=== PATIENT | female | born 1985 | race Caucasian/White ===

== ENCOUNTER → 2023-09-13 11:53 | Outpatient (CLI) | payer OTHER, SELFPAY ==
[2023-09-13 13:33] LABS: HCG,Quantitative 70626 mIU/ml (0-5.42)
[2023-09-14 08:36] LABS: Progesterone 8.3 ng/mL (.)
== END ==
PROVIDERS: PCP Family Medicine; Visit Provider Obstetrics & Gynecology
DX: Z34.90 Encounter for supervision of normal pregnancy, unspecified, unspecified trimester (principal); Z3A.00 Weeks of gestation of pregnancy not specified
CPT/HCPCS: 36415; 84144; 84702

== ENCOUNTER → 2023-09-28 16:03 | Outpatient (CLI) | payer OTHER, SELFPAY ==
[2023-09-28 16:47] LABS: Basophils # 0.1 K/mm3 (0-0.2); Basophils % 0.4 % (0.1-2.0); Eosinophils # 0.3 K/mm3 (0.0-0.4); Hematocrit 42.6 % (37.0-47.0); Hemoglobin 14.7 g/dL (12.2-16.2); Lymphocytes # 3.5 K/mm3 (0.7-4.5); Lymphocytes % 26.9 % (10-50); Mean Corpuscular HGB Conc 34.5 g/dL (31.8-35.4); Mean Corpuscular Hemoglobin 30.3 pg (27.0-31.2); Mean Platelet Volume 7.9 fl (7.4-10.4); Monocytes # 0.6 K/mm3 (0.1-1.0); Monocytes % 4.2 % (1.7-9.3); Neutrophils # 8.7 K/mm3 (1.8-7.8); Neutrophils % 66.5 % (37.0-80.0); Platelet Count 331 K/mm3 (142-424); Red Blood Count 4.84 M/mm3 (4.20-5.40); Red Cell Distribution Width 13.4 % (11.5-17.5)
[2023-09-28 18:03] LABS: Chloride 102 mmol/L (98-107); Potassium 4.4 mmoL/L (3.5-5.1); Sodium 136 mmol/L (136-145)
[2023-09-28 18:06] LABS: Amphetamine/Metha Screen,Urine Negative ng/ml (<1000); Barbiturates Screen,Urine Negative ng/ml (<200); Benzodiazepines Screen,Urine Negative ng/ml (<200); Cannabinoid Screen,Urine Negative ng/ml (<50)
[2023-09-28 18:06] LABS: Alanine Aminotransferase 26 U/L (12-78); Albumin Level 4.4 g/dl (3.5-5.0); Albumin/Globulin Ratio 1.4 (1.1-1.8); Alkaline Phosphatase 77 U/L (38-126); Anion Gap 13.4 mEq/L (5-15); Aspartate Amino Transferase 30 U/L (14-36); Bilirubin,Total 0.3 mg/dl (0.2-1.3); Blood Urea Nitrogen 6 mg/dl (7-17); Calcium 9.1 mg/dl (8.4-10.2); Carbon Dioxide 25 mmol/L (22.0-30.0); Estimated Glomerular Filt Rate 139 ml/min (>60); GFR (African American) 168 ML/MIN (>60); Globulin 3.1 g/dL (1.3-3.2); Glucose 128 mg/dl (74-100); Total Protein,Serum 7.5 g/dl (6.3-8.2)
[2023-09-28 18:07] LABS: Cocaine Screen,Urine Negative ng/ml (<300)
[2023-09-28 18:08] LABS: Methadone Screen,Urine Negative ng/ml (<300); Opiate Screen,Urine Negative ng/ml (<300)
[2023-09-28 18:09] LABS: Phencyclidine Screen,Urine Negative ng/ml (<25)
[2023-09-30 12:13] LABS: HIV Screen 4th Generation wRfx Non Reactive (Non Reactive); Rapid Plasma Reagin Ab Titer Non Reactive titer (NonRea<1:1)
[2023-10-04 09:41] LABS: Hepatitis B Surface Antigen Negative; Hepatitis C Antibody Non Reactive
== END ==
PROVIDERS: PCP Family Medicine; Visit Provider Obstetrics & Gynecology
DX: Z34.91 Encounter for supervision of normal pregnancy, unspecified, first trimester (principal); Z3A.10 10 weeks gestation of pregnancy
CPT/HCPCS: 36415; 80053; 80305; 85025; 86593; 86703; 86762; 86850; 87086; 87340; 87380; G0432

== ENCOUNTER → 2023-09-30 09:47 | Outpatient (CLI) | payer OTHER, SELFPAY ==
[2023-09-30 11:38] LABS: Glucose,Fasting 114 mg/dl (74-100)
[2023-09-30 11:51] LABS: Glucose 1 Hour 122 mg/dL (74-100)
[2023-09-30 15:02] LABS: Creatinine,Urine Random 102 mg/dL (Not Estab.)
[2023-09-30 15:21] LABS: Collection Time,Urine 24 hours
[2023-09-30 15:22] LABS: Creatinine 24 Hour,Urine 1173 mg/24hr (630-2500); Total Protein 24 Hour,Urine 230 mg/24 hr (40-90); Total Volume,Urine 1150 mL (600-1600)
[2023-09-30 15:52] LABS: Creatinine Clearance Urine 136.5 mL/min (25-115); Patient Height,Urine 64 inches; Patient Weight,Urine 229 lbs
== END ==
PROVIDERS: PCP Family Medicine; Visit Provider Obstetrics & Gynecology
DX: Z34.91 Encounter for supervision of normal pregnancy, unspecified, first trimester (principal); Z3A.10 10 weeks gestation of pregnancy
CPT/HCPCS: 36415; 82575; 82951; 84155

== ENCOUNTER 2023-11-22 15:09 | Outpatient (CLI) | payer OTHER, SELFPAY | END 2023-11-22 23:59 | LOC: RT 15:09 | PROVIDERS: PCP Family Medicine; Visit Provider Internal Medicine | DX: O10.912 Unspecified pre-existing hypertension complicating pregnancy, second trimester (principal); Z3A.18 18 weeks gestation of pregnancy; R94.31 Abnormal electrocardiogram [ECG] [EKG]; I48.91 Unspecified atrial fibrillation; Z86.32 Personal history of gestational diabetes; Z87.59 Personal history of other complications of pregnancy, childbirth and the puerperium; E66.9 Obesity, unspecified; Z68.41 Body mass index [BMI] 40.0-44.9, adult | CPT/HCPCS: 93270 ==

== ENCOUNTER 2023-12-03 13:25 | Outpatient (CLI) | payer OTHER, SELFPAY ==
[2023-12-03 14:00] VITALS: BP 148/73; PULSE 84; RESP 18; TEMP 36.7; O2SAT 97; BMI 40.1
== END 2023-12-03 15:21 | disposition home or self-care (01) ==
LOC: OBOUT 13:28 → OB 13:28
PROVIDERS: PCP Family Medicine; Visit Provider Obstetrics & Gynecology
DX: O26.892 Other specified pregnancy related conditions, second trimester (principal); O20.9 Hemorrhage in early pregnancy, unspecified; Z3A.19 19 weeks gestation of pregnancy

== ENCOUNTER 2023-12-03 14:56 | Outpatient (CLI) | payer OTHER, SELFPAY ==
--- NOTE | 2023-12-03 14:57 | CA_ITS ---
APPROVED REPORT EXAM: Comprehensive 2D, Doppler, and color-flow Echocardiogram Travel Consultant: Shaina Rene RDCS Ht: 5 ft 4 in Wt: 234lbs BSA: 2.09 BP: 152/96 mmHg Indications: AF,ABN EKG,20 WKS , 2D Dimensions Left Atrium 3.87 cm F: 2.7 - 3.8 EF AP4 51.10 % LVOT 1.66 cm (M/F) 1.5-2.5 GL Strain -16.3 % M-Mode Dimensions RVDd 2.04 cm (0.9-2.6) LVDd 5.58 cm (3.5-5.7) Ao Diam 3.12 cm (2.0-3.7) LVDs 3.86 cm (3.5-5.7) IVSd 0.64 cm (0.6-1.1) PWd 0.75 cm (0.6-1.1) EF (Teich) 57.80% FS 30.80% EDV (Teich) 152.40 mL ESV (Teich) 64.30 mL LV Diastology E Decel Time 142 (160-240 msec) E/A Ratio 1.8 MED E' 13.4 (>= 7 cm/sec) E'/MED E' Ratio 6.57 (<= 14) LAT E' 11.6 (>= 10 cm/sec) E/LAT E' Ratio 7.59 (<= 14) Mitral Valve MV E Max Rigoberto. 88.0 (40-130 cm/s) MV A Velocity 49.0 (40-130 cm/s) E/A Ratio 1.79 MV Decel. Time 142 (160-240 ms) Left Ventricle The left ventricle is normal size. The left ventricular systolic function is normal. The left ventricular ejection fraction is within the normal range. There is normal left ventricular wall thickness. There is normal LV segmental wall motion. The left ventricular diastolic function is normal. LVEF is 50-55%. Right Ventricle The right ventricle is normal size. The right ventricular systolic function is normal. Atria The left atrium size is normal. The right atrium size is normal. The interatrial septum is not well-visualized. Aortic Valve The aortic valve opens well. There is no aortic valvular stenosis. Trace aortic regurgitation. Mitral Valve The mitral valve is normal in structure. No evidence of mitral valve stenosis. Mild mitral regurgitation. Tricuspid Valve The tricuspid valve leaflets are thin and pliable. Trace tricuspid regurgitation. RVSP is 15 mmHg + RA pressure. Pulmonic Valve The pulmonary valve is normal in structure. Trace pulmonic regurgitation. Great Vessels The aortic root is normal in size. The ascending aorta is normal in size. The IVC is not well-visualized. Pericardium There is no pericardial effusion. Conclusion Normal biventricular systolic function. Mild MR. Electronically signed by : Hortencia Noland MD 12/06/2023 12:56:50
== END 2023-12-03 23:59 ==
LOC: RT 14:57
PROVIDERS: PCP Family Medicine; Visit Provider Internal Medicine
DX: I48.91 Unspecified atrial fibrillation; E66.9 Obesity, unspecified; R94.31 Abnormal electrocardiogram [ECG] [EKG]; Z3A.20 20 weeks gestation of pregnancy; Z86.32 Personal history of gestational diabetes; Z87.59 Personal history of other complications of pregnancy, childbirth and the puerperium; Z68.39 Body mass index [BMI] 39.0-39.9, adult; O10.912 Unspecified pre-existing hypertension complicating pregnancy, second trimester
CPT/HCPCS: 93306

== ENCOUNTER 2023-12-06 12:51 | Outpatient (CLI) | payer OTHER, SELFPAY ==
--- NOTE | 2023-12-06 12:58 | US_ITS ---
PROCEDURE: US OB /MATERNAL DETAIL CLINICAL INDICATION: 20 WEEK ANATOMY SCAN COMPARISON: No exams were available for comparison FINDINGS: Transabdominal sonographic images of the pelvis were obtained. From her established due date she is 20 weeks 2 days. Single viable intrauterine gestation. Breech position. Placenta: Posteriorplacenta grade 1. There is an average amount of fluid. The cervix appears satisfactory. Closed and measuring 3.1 cm in length. Complete survey performed and was unremarkable on the submitted images as in PACS. No discrete anomalies identified on survey imaging by technologist. Active fetus. Three-vessel cord with satisfactory umbilical cord insertion. 4- chamber heart noted. Situs, aortic arch, LVOT, RVOT appear normal. Survey of brain & ventricles Unremarkable. Cerebellum, thalamus, choroid plexus, cisterna magna appear normal. Face and neck survey unremarkable. Profile, nasion, lips and nose appeared normal. Diaphragm and chest views unremarkable. Abdomen: Both kidneys noted and unremarkable. Stomach and bladder noted and satisfactory. Spine: Survey of the spine satisfactory with no anomalies identified nor imaged. Cervical, thoracic, lower spine appear normal. Both arms and legs noted. Amniotic Fluid: Adequate. Measurements: Average ultrasound age 19weeks 4days. Estimated due date by ultrasound age 0704/27/2024. Estimated weight 296g BPD = 19weeks 2days HC = 19weeks 4days AC = 19weeks 1day FL = 20weeks 0 days Growth Percentile= 11 Heart Rate = 152bpm Cerebellum = 19weeks 1day Humerus = 20weeks 1day HC/AC is 1.23 FL/BPD is 0.73 FL/AC is 0.23 IMPRESSION: 1. Viable fetus in the breech presentation with a posterior placenta grade 1. 2. The fluid is within normal limits. 3. Anatomical scan appears normal. The ultrasound was difficult due to position and maternal body habitus. 4. biometry is consistent with the dates. Dictated by: Felix Enriquez MD 12/06/2023 15:06 Felix Enriquez MD in [facility] 12/06/2023 15:06
== END 2023-12-06 23:59 ==
LOC: RAD 12:51
PROVIDERS: PCP Family Medicine; Visit Provider Obstetrics & Gynecology
DX: Z34.92 Encounter for supervision of normal pregnancy, unspecified, second trimester (principal); Z3A.20 20 weeks gestation of pregnancy
CPT/HCPCS: 76811

== ENCOUNTER 2024-02-02 11:36 | Outpatient (CLI) | payer OTHER, SELFPAY ==
[2024-02-02 12:40] LABS: Glucose,Fasting 108 mg/dl (74-100)
--- NOTE | 2024-02-02 13:13 | US_ITS ---
PROCEDURE: US OB BIOPHYSICAL PROFILE CLINICAL INDICATION: growth and Melodie/ SD ratio COMPARISON: US US OB /MATERNAL DETAIL from 12/06/2023 FINDINGS: Transabdominal sonographic images of the uterus were obtained. From her established due date she is 28weeks 4days. The following parameters are obtained: Viable Fetus in the cephalic presentation with a posterior placenta grade 1. Average ultrasound age is 28weeks 3days Estimated weight 1,160g Cervix measures 2.68 cm Measurements: heart Rate = 135bpm BPD = 28weeks 5days, 41 percentile HC = 28weeks 6days, 25 percentile AC = 27weeks 5days, 18 percentile FL = 28weeks 2days, 24 percentile HC/AC is 1.14 FL/BPD is 0.74 FL/AC is 0.23 19 percentile Amniotic fluid index: 12.74cm, MVP 4.11 cm. Qualitative AFV:2 Breathing movements: 2 Gross Body Movements: 2 Tone: 2 Biophysical profile score: 8 Doppler evaluation of the umbilical artery: SD ratio: 2.67-3.04 Resistive index: 0.63 No obvious anomalies evident.Kidneys, profile, nasion, diaphragm, bladder, stomach, four-chamber heart, three-vessel cord appear normal. IMPRESSION: 1. Viable fetus in the cephalic presentation with a posterior placenta grade 1. 2. The fluid is within normal limits with an amniotic fluid index of 12.74 cm, MVP 4.11 cm. 3. Biophysical profile is 8/8 with good breathing movement and movement seen. 4. Doppler evaluation of the umbilical artery is normal with the SD ratio 2.67-3.04. 5. There has been good interval growth with the fetus currently 19th percentile. Dictated by: Felix Enriquez MD 02/02/2024 16:53 Felix Enriquez MD in [facility] 02/02/2024 16:53
[2024-02-02 13:26] LABS: Glucose 1 Hour 135 mg/dL (74-100)
[2024-02-02 14:30] LABS: Basophils # 0.1 K/mm3 (0-0.2); Basophils % 0.4 % (0.1-2.0); Eosinophils # 0.3 K/mm3 (0.0-0.4); Eosinophils % 1.9 % (0.1-12.0); Hematocrit 39.8 % (37.0-47.0); Hemoglobin 12.6 g/dL (12.2-16.2); Lymphocytes % 18.3 % (10-50); Mean Corpuscular HGB Conc 31.7 g/dL (31.8-35.4); Mean Corpuscular Hemoglobin 29.8 pg (27.0-31.2); Mean Platelet Volume 8.4 fl (7.4-10.4); Monocytes # 0.6 K/mm3 (0.1-1.0); Monocytes % 3.8 % (1.7-9.3); Neutrophils # 12.4 K/mm3 (1.8-7.8); Neutrophils % 75.6 % (37.0-80.0); Platelet Count 341 K/mm3 (142-424); Red Blood Count 4.24 M/mm3 (4.20-5.40); Red Cell Distribution Width 13.8 % (11.5-17.5); White Blood Count 16.4 K/mm3 (4.8-10.8)
[2024-02-02 14:33] LABS: MANUAL DIFFERENTIAL MANUAL DIFFERENTIAL (MANUAL DIFF)
[2024-02-02 15:08] LABS: Lymphocytes % 20 % (10-50); Monocytes % 3 % (2-9); Neutrophils % 77 % (42-76); Platelet Estimate Normal; RBC Morphology Normal; Total Cells Counted 100
== END 2024-02-02 23:59 | disposition home or self-care (01) ==
LOC: RAD 11:36
PROVIDERS: PCP Family Medicine; Visit Provider Obstetrics & Gynecology
DX: O09.523 Supervision of elderly multigravida, third trimester (principal); O28.8 Other abnormal findings on antenatal screening of mother; Z86.32 Personal history of gestational diabetes; O09.293 Supervision of pregnancy with other poor reproductive or obstetric history, third trimester; O10.913 Unspecified pre-existing hypertension complicating pregnancy, third trimester; Z87.59 Personal history of other complications of pregnancy, childbirth and the puerperium; I48.20 Chronic atrial fibrillation, unspecified; Z3A.28 28 weeks gestation of pregnancy
CPT/HCPCS: 36415; 76816; 76819; 76820; 82951; 85007; 85025

== ENCOUNTER 2024-03-01 11:54 | Outpatient (CLI) | payer OTHER, SELFPAY ==
[2024-03-01 12:28] LABS: Basophils # 0.1 K/mm3 (0-0.2); Basophils % 0.4 % (0.1-2.0); Eosinophils # 0.2 K/mm3 (0.0-0.4); Hematocrit 38.2 % (37.0-47.0); Hemoglobin 12.4 g/dL (12.2-16.2); Lymphocytes # 2.7 K/mm3 (0.7-4.5); Lymphocytes % 17.6 % (10-50); Mean Corpuscular HGB Conc 32.5 g/dL (31.8-35.4); Mean Corpuscular Volume 92.6 fl (81-99); Mean Platelet Volume 8.6 fl (7.4-10.4); Monocytes # 0.7 K/mm3 (0.1-1.0); Monocytes % 4.4 % (1.7-9.3); Neutrophils # 11.6 K/mm3 (1.8-7.8); Neutrophils % 76.6 % (37.0-80.0); Platelet Count 362 K/mm3 (142-424); Red Blood Count 4.13 M/mm3 (4.20-5.40); White Blood Count 15.1 K/mm3 (4.8-10.8)
[2024-03-01] MEDS: BETAMETHASONE ACET/PHOS 6MG/ML 5ML MDV 12 MG IM (12:29)
[2024-03-01 12:30] LABS: MANUAL DIFFERENTIAL MANUAL DIFFERENTIAL (MANUAL DIFF)
[2024-03-01 12:52] LABS: Alanine Aminotransferase 19 U/L (12-78); Albumin Level 3.6 g/dl (3.5-5.0); Albumin/Globulin Ratio 1.2 (1.1-1.8); Alkaline Phosphatase 119 U/L (38-126); Anion Gap 12.1 mEq/L (5-15); Aspartate Amino Transferase 26 U/L (14-36); Bilirubin,Total 0.3 mg/dl (0.2-1.3); Blood Urea Nitrogen 4 mg/dl (7-17); Calcium 9.6 mg/dl (8.4-10.2); Carbon Dioxide 25 mmol/L (22.0-30.0); Chloride 103 mmol/L (98-107); Estimated Glomerular Filt Rate 138 ml/min (>60); GFR (African American) 167 ML/MIN (>60); Globulin 2.9 g/dL (1.3-3.2); Glucose 101 mg/dl (74-100); Potassium 4.1 mmoL/L (3.5-5.1); Sodium 136 mmol/L (136-145); Total Protein,Serum 6.5 g/dl (6.3-8.2); Uric Acid 3.3 mg/dl (2.5-6.2)
[2024-03-01 14:17] LABS: Eosinophils % 2 % (0-3); Lymphocytes % 23 % (10-50); Monocytes % 9 % (2-9); Neutrophils % 60 % (42-76); Total Cells Counted 100
[2024-03-01 14:19] LABS: Platelet Estimate Normal; RBC Morphology Normal
== END 2024-03-01 23:59 | disposition home or self-care (01) ==
LOC: LAB 11:56
PROVIDERS: PCP Family Medicine; Visit Provider Obstetrics & Gynecology
DX: O10.913 Unspecified pre-existing hypertension complicating pregnancy, third trimester (principal); Z3A.32 32 weeks gestation of pregnancy
CPT/HCPCS: 36415; 80053; 84550; 85007; 85025

== ENCOUNTER 2024-03-02 12:30 | Outpatient (CLI) | payer OTHER, SELFPAY ==
[2024-03-02] MEDS: BETAMETHASONE ACET/PHOS 6MG/ML 5ML MDV 12 MG IM (12:54)
[2024-03-02 12:55] VITALS: BP 129/71; PULSE 95; RESP 18; TEMP 37; O2SAT 97; BMI 41.3
[2024-03-02 16:45] LABS: Total Protein 24 Hour,Urine 240 mg/24 hr (40-90); Total Volume,Urine 1200 mL (600-1600)
== END 2024-03-02 13:00 | disposition home or self-care (01) ==
LOC: LAB.DROPOF 12:31 → OBOUT 12:32 → OB 12:34
PROVIDERS: PCP Family Medicine; Visit Provider Obstetrics & Gynecology
DX: O10.913 Unspecified pre-existing hypertension complicating pregnancy, third trimester (principal); Z3A.32 32 weeks gestation of pregnancy
CPT/HCPCS: 84155

== ENCOUNTER 2024-03-08 10:03 | Outpatient (CLI) | payer OTHER, SELFPAY ==
--- NOTE | 2024-03-08 10:08 | US_ITS ---
PROCEDURE: US OB BIOPHYSICAL PROFILE CLINICAL INDICATION: Chronic Hypertention affecting COMPARISON: US US OB /MATERNAL DETAIL from 12/06/2023 US US OB BIOPHYSICAL PROFILE from 02/02/2024 FINDINGS: Transabdominal sonographic images of the uterus were obtained. From her established due date she is 33weeks 4days. The following parameters are obtained: Viable Fetus in the cephalic presentation with a posterior placenta grade 2. Average ultrasound age is 33weeks 5days Estimated weight 2,132g Measurements: heart Rate = 149bpm BPD = 34weeks 3days, 70 percentile HC = 34weeks 3days, 31 percentile AC = 33weeks 0 days, 31 percentile FL = 33weeks 0 days, 23 percentile HC/AC is 1.07 FL/BPD is 0.75 FL/AC is 0.22 growth =30 percentile Amniotic fluid index: 8.97cm, MVP 4.07 cm. Qualitative AFV:2 Breathing movements: 2 Gross Body Movements: 2 Tone: 2 Biophysical profile score: 8 No obvious anomalies evident.Stomach, kidneys, bladder, four-chamber heart, three-vessel cord appear normal. IMPRESSION: 1. Viable fetus in the cephalic presentation with a posterior placenta grade 2. 2. The fluid is within normal limits with an amniotic fluid index of 8.97 cm, MVP 4.07 cm. 3. Biophysical profile is 8/8 with good breathing movement and movement seen. 4. There has been good interval growth of the fetus currently 30th percentile. 5. Limited anatomical scan appears normal. Dictated by: Felix Enriquez MD 03/08/2024 13:44 Felix Enriquez MD in [facility] 03/08/2024 13:44
== END 2024-03-08 23:59 | disposition home or self-care (01) ==
LOC: RAD 10:03
PROVIDERS: PCP Family Medicine; Visit Provider Obstetrics & Gynecology
DX: O26.893 Other specified pregnancy related conditions, third trimester (principal); O10.919 Unspecified pre-existing hypertension complicating pregnancy, unspecified trimester; Z3A.33 33 weeks gestation of pregnancy; I48.20 Chronic atrial fibrillation, unspecified; R94.31 Abnormal electrocardiogram [ECG] [EKG]
CPT/HCPCS: 76816; 76819

== ENCOUNTER 2024-03-15 11:14 | Outpatient (CLI) | payer OTHER, SELFPAY ==
[2024-03-15 11:50] VITALS: BMI 40.8
[2024-03-15 11:58] VITALS: BP 142/87; PULSE 94; RESP 18; TEMP 36.6; O2SAT 97; BMI 40.8
[2024-03-15 12:10] LABS: Basophils # 0.1 K/mm3 (0-0.2); Basophils % 0.7 % (0.1-2.0); Eosinophils # 0.2 K/mm3 (0.0-0.4); Eosinophils % 1.2 % (0.1-12.0); Hematocrit 39.5 % (37.0-47.0); Hemoglobin 12.7 g/dL (12.2-16.2); Lymphocytes # 2.9 K/mm3 (0.7-4.5); Lymphocytes % 16.6 % (10-50); Mean Corpuscular HGB Conc 32.1 g/dL (31.8-35.4); Mean Corpuscular Hemoglobin 29.9 pg (27.0-31.2); Mean Corpuscular Volume 93.3 fl (81-99); Mean Platelet Volume 8.1 fl (7.4-10.4); Monocytes # 0.8 K/mm3 (0.1-1.0); Monocytes % 4.9 % (1.7-9.3); Neutrophils # 13.2 K/mm3 (1.8-7.8); Neutrophils % 76.7 % (37.0-80.0); Platelet Count 317 K/mm3 (142-424); Red Blood Count 4.24 M/mm3 (4.20-5.40); Red Cell Distribution Width 14.1 % (11.5-17.5); White Blood Count 17.2 K/mm3 (4.8-10.8)
[2024-03-15 12:16] LABS: Chloride 104 mmol/L (98-107); MANUAL DIFFERENTIAL MANUAL DIFFERENTIAL (MANUAL DIFF); Potassium 4.2 mmoL/L (3.5-5.1); Sodium 133 mmol/L (136-145)
[2024-03-15 12:18] LABS: Alanine Aminotransferase 19 U/L (12-78); Aspartate Amino Transferase 24 U/L (14-36); Blood Urea Nitrogen 5 mg/dl (7-17); Creatinine Clearance Estimated 325 mL/min (50-200); Estimated Glomerular Filt Rate 179 ml/min (>60); GFR (African American) 216 ML/MIN (>60)
[2024-03-15 12:19] LABS: Albumin Level 3.7 g/dl (3.5-5.0); Albumin/Globulin Ratio 1.1 (1.1-1.8); Alkaline Phosphatase 112 U/L (38-126); Anion Gap 10.2 mEq/L (5-15); Bilirubin,Total 0.3 mg/dl (0.2-1.3); Calcium 9.9 mg/dl (8.4-10.2); Carbon Dioxide 23 mmol/L (22.0-30.0); Globulin 3.4 g/dL (1.3-3.2); Glucose 102 mg/dl (74-100); Total Protein,Serum 7.1 g/dl (6.3-8.2)
[2024-03-15 12:33] LABS: Uric Acid 3.2 mg/dl (2.5-6.2)
[2024-03-15 14:12] LABS: Eosinophils % 1 % (0-3); Lymphocytes % 19 % (10-50); Monocytes % 3 % (2-9); Neutrophils % 77 % (42-76); Platelet Estimate Normal; RBC Morphology Normal; Total Cells Counted 100
== END 2024-03-15 13:05 | disposition home or self-care (01) ==
LOC: OBOUT 11:16 → OB 11:17
PROVIDERS: PCP Family Medicine; Visit Provider Obstetrics & Gynecology
DX: O26.893 Other specified pregnancy related conditions, third trimester (principal); Z3A.34 34 weeks gestation of pregnancy
CPT/HCPCS: 36415; 80053; 84550; 85007; 85025; G0463

== ENCOUNTER 2024-03-22 10:06 | Outpatient (CLI) | payer OTHER, SELFPAY ==
--- NOTE | 2024-03-22 10:07 | US_ITS ---
PROCEDURE: US OB BIOPHYSICAL PROFILE CLINICAL INDICATION: Chronic Hypertension COMPARISON: US US OB /MATERNAL DETAIL from 12/06/2023 US US OB BIOPHYSICAL PROFILE from 03/08/2024 FINDINGS: Transabdominal sonographic images of the uterus were obtained. From her established due date she is 35weeks 4days. The following parameters are obtained: Viable Fetus in the cephalic presentation with a posterior placenta grade 2. Cervix measures 4.1 cm transvaginally. Measurements: heart Rate = 143bpm Amniotic fluid index: 11.1cm, MVP 4.16 cm. Qualitative AFV:2 Breathing movements: 2 Gross Body Movements: 2 Tone: 2 Biophysical profile score: 8 No obvious anomalies evident.Kidneys, stomach, bladder, four-chamber heart, three-vessel cord appear normal. IMPRESSION: 1. Viable fetus in the cephalic presentation with a posterior placenta grade 2. 2. The fluid is within normal limits with an amniotic fluid index of 11.1 cm, MVP 4.16 cm. 3. Biophysical profile is 8/8 with good breathing movement and movement seen. 4. Limited anatomical scan appears normal. Dictated by: Felix Enriquez MD 03/22/2024 14:13 Felix Enriquez MD in [facility] 03/22/2024 14:13
== END 2024-03-22 23:59 | disposition home or self-care (01) ==
LOC: RAD 10:07
PROVIDERS: PCP Family Medicine; Visit Provider Obstetrics & Gynecology
DX: O10.913 Unspecified pre-existing hypertension complicating pregnancy, third trimester (principal); Z3A.35 35 weeks gestation of pregnancy; R94.31 Abnormal electrocardiogram [ECG] [EKG]
CPT/HCPCS: 76819

== ENCOUNTER 2024-03-29 11:07 | Outpatient (CLI) | payer OTHER, SELFPAY ==
[2024-03-29 11:42] VITALS: BP 144/87; PULSE 96; RESP 19; TEMP 36.6; O2SAT 96; BMI 41.5
--- NOTE | 2024-03-29 11:53 | US_ITS ---
PROCEDURE: US OB BIOPHYSICAL PROFILE CLINICAL INDICATION: Non-reactive NST COMPARISON: US US OB /MATERNAL DETAIL from 12/06/2023 US US OB BIOPHYSICAL PROFILE from 03/22/2024 FINDINGS: Transabdominal sonographic images of the uterus were obtained. From her established due date she is 36weeks 4days. The following parameters are obtained: Viable Fetus in the cephalic presentation with a posterior placenta grade 2. Cervix measures 2.96 cm. Measurements: heart Rate = 135bpm Amniotic fluid index: 12.91cm, MVP 5.37 cm. Qualitative AFV:2 Breathing movements: 2 Gross Body Movements: 2 Tone: 2 Biophysical profile score: 8 No obvious anomalies evident.Kidneys, four-chamber heart, three-vessel cord appear normal. IMPRESSION: 1. Viable fetus in the cephalic presentation with a posterior placenta grade 2. 2. The fluid is within normal limits with an amniotic fluid index of 12.91 cm, MVP 5.37 cm. 3. Biophysical profile is 8/8 with good breathing movement and movement seen. 4. Nonstress test in labor and delivery eventually became reactive with good beat to beat variability and accelerations seen. 5. Limited anatomical scan appears normal. Dictated by: Felix Enriquez MD 03/29/2024 15:18 Felix Enriquez MD in [facility] 03/29/2024 15:18
[2024-03-29] MEDS: DEXTROSE 5%-LACTATED RINGERS 1,000 ML 999 ML IV (13:09)
== END 2024-03-29 14:17 | disposition home or self-care (01) ==
LOC: OBOUT 11:09 → OB 11:10
PROVIDERS: PCP Family Medicine; Visit Provider Obstetrics & Gynecology
DX: O10.913 Unspecified pre-existing hypertension complicating pregnancy, third trimester (principal)
CPT/HCPCS: 76819; G0463

== ENCOUNTER 2024-03-29 17:06 | Outpatient (CLI) | payer OTHER, SELFPAY | END 2024-03-29 23:59 | disposition home or self-care (01) | LOC: LAB.DROPOF 17:06 | PROVIDERS: PCP Obstetrics & Gynecology; Visit Provider Obstetrics & Gynecology | DX: O26.893 Other specified pregnancy related conditions, third trimester (principal); Z3A.36 36 weeks gestation of pregnancy | CPT/HCPCS: 86403 ==

== ENCOUNTER 2024-04-05 10:08 | Outpatient (CLI) | payer OTHER, SELFPAY ==
--- NOTE | 2024-04-05 10:09 | US_ITS ---
PROCEDURE: US OB BIOPHYSICAL PROFILE CLINICAL INDICATION: Chronic Hypertension in COMPARISON: US US OB /MATERNAL DETAIL from 12/06/2023 US US OB BIOPHYSICAL PROFILE from 03/29/2024 FINDINGS: Transabdominal and transvaginal sonographic images of the uterus were obtained. From her established due date she is 37weeks 4days. The following parameters are obtained: Viable Fetus in the cephalic presentation with a posterior placenta grade 2. Average ultrasound age is 37weeks 1day Estimated weight 3,108g, 6 lb 14 oz.-46th percentile Cervix measures 2.37-2.89 cm. Measured transvaginally. Measurements: heart Rate = 139bpm BPD = 37weeks 0 days, 51 percentile HC = 37weeks 1day, 17 percent AC = 37weeks 1day, 54 percent FL = 37weeks 1day, 37 percentile HC/AC is 0.98 FL/BPD is 0.8 FL/AC is 0.22 46 percentile Amniotic fluid index: 11.14cm, MVP 3.33 cm. Qualitative AFV:2 Breathing movements: 2 Gross Body Movements: 2 Tone: 2 Biophysical profile score: 8 No obvious anomalies evident.Kidneys, stomach, four-chamber heart, three-vessel cord appear normal. IMPRESSION: 1. Viable fetus in the cephalic presentation with a posterior placenta grade 2. 2. The fluid is within normal limits with an amniotic fluid index of 11.14 cm, MVP 3.33 cm. 3. Biophysical profile is 8/8 with good breathing movement and movement seen. 4. There has been good interval growth with the fetus currently 46 percentile. 5. Limited anatomical scan appears normal. Dictated by: Felix Enriquez MD 04/05/2024 13:25 Felix Enriquez MD in [facility] 04/05/2024 13:25
== END 2024-04-05 23:59 | disposition home or self-care (01) ==
LOC: RAD 10:09
PROVIDERS: PCP Family Medicine; Visit Provider Obstetrics & Gynecology
DX: O10.919 Unspecified pre-existing hypertension complicating pregnancy, unspecified trimester (principal); Z3A.37 37 weeks gestation of pregnancy; R94.31 Abnormal electrocardiogram [ECG] [EKG]
CPT/HCPCS: 76816; 76819

== ENCOUNTER 2024-04-05 14:24 | Outpatient (CLI) | payer OTHER, SELFPAY | END 2024-04-05 23:59 | disposition home or self-care (01) | LOC: LAB 14:25 | PROVIDERS: PCP Family Medicine; Visit Provider Obstetrics & Gynecology | DX: Z02.9 Encounter for administrative examinations, unspecified (principal) ==

== ENCOUNTER 2024-04-07 10:45 | Outpatient (CLI) | payer OTHER, SELFPAY ==
[2024-04-07 11:11] LABS: Basophils # 0.1 K/mm3 (0-0.2); Basophils % 0.8 % (0.1-2.0); Eosinophils # 0.1 K/mm3 (0.0-0.4); Eosinophils % 0.8 % (0.1-12.0); Hematocrit 40.4 % (37.0-47.0); Hemoglobin 13.1 g/dL (12.2-16.2); Lymphocytes # 3.1 K/mm3 (0.7-4.5); Lymphocytes % 19.5 % (10-50); Mean Corpuscular HGB Conc 32.4 g/dL (31.8-35.4); Mean Corpuscular Hemoglobin 29.9 pg (27.0-31.2); Mean Corpuscular Volume 92.2 fl (81-99); Mean Platelet Volume 8.4 fl (7.4-10.4); Monocytes # 0.7 K/mm3 (0.1-1.0); Monocytes % 4.2 % (1.7-9.3); Neutrophils # 11.7 K/mm3 (1.8-7.8); Neutrophils % 74.7 % (37.0-80.0); Platelet Count 342 K/mm3 (142-424); Red Blood Count 4.38 M/mm3 (4.20-5.40); Red Cell Distribution Width 13.8 % (11.5-17.5); White Blood Count 15.7 K/mm3 (4.8-10.8)
[2024-04-07 11:15] LABS: MANUAL DIFFERENTIAL MANUAL DIFFERENTIAL (MANUAL DIFF)
[2024-04-07 11:48] LABS: Alanine Aminotransferase 20 U/L (12-78); Albumin Level 3.6 g/dl (3.5-5.0); Albumin/Globulin Ratio 1.2 (1.1-1.8); Alkaline Phosphatase 143 U/L (38-126); Anion Gap 15.3 mEq/L (5-15); Aspartate Amino Transferase 25 U/L (14-36); Bilirubin,Total 0.4 mg/dl (0.2-1.3); Blood Urea Nitrogen 6 mg/dl (7-17); Calcium 9.6 mg/dl (8.4-10.2); Carbon Dioxide 23 mmol/L (22.0-30.0); Chloride 101 mmol/L (98-107); Estimated Glomerular Filt Rate 138 ml/min (>60); GFR (African American) 167 ML/MIN (>60); Globulin 3.1 g/dL (1.3-3.2); Glucose 125 mg/dl (74-100); Lactate Dehydrogenase 180 U/L (313-618); Potassium 4.3 mmoL/L (3.5-5.1); Sodium 135 mmol/L (136-145); Total Protein,Serum 6.7 g/dl (6.3-8.2)
[2024-04-07 11:53] LABS: Lymphocytes % 17 % (10-50); Monocytes % 6 % (2-9); Neutrophils % 77 % (42-76); Platelet Estimate Normal; RBC Morphology Normal; Total Cells Counted 100
[2024-04-07 13:22] LABS: Collection Time,Urine 24 hours; Total Volume,Urine 2850 mL (600-1600)
[2024-04-07 13:27] LABS: Patient Weight,Urine 247 lbs
[2024-04-07 13:28] LABS: Patient Height,Urine 64 inches
[2024-04-07 13:44] LABS: Total Protein 24 Hour,Urine 485 mg/24 hr (40-90)
[2024-04-07 13:45] LABS: Creatinine 24 Hour,Urine 1625 mg/24hr (630-2500)
[2024-04-07 13:46] LABS: Creatinine,Urine Random 57 mg/dL (Not Estab.)
== END 2024-04-07 23:59 | disposition home or self-care (01) ==
LOC: LAB 10:46
PROVIDERS: PCP Family Medicine; Visit Provider Obstetrics & Gynecology
DX: Z34.93 Encounter for supervision of normal pregnancy, unspecified, third trimester (principal); Z3A.33 33 weeks gestation of pregnancy; Z86.32 Personal history of gestational diabetes
CPT/HCPCS: 36415; 80053; 82575; 83615; 84155; 84550; 85007; 85025; 85027

== ENCOUNTER 2024-04-12 11:45 | Inpatient (IN) | payer OTHER, SELFPAY ==
[2024-04-12 12:17] VITALS: BP 164/95; PULSE 91; RESP 18; TEMP 36.6; O2SAT 97; BMI 42.5
--- NOTE | 2024-04-12 12:23 | EXP.HP ---
History of Present Illness *Admission Date: 04/12/24 *Reason for visit:: induction *History of present illness: Tahira is a 38yo who presented to the office today where she was diagnosed with chronic hypertension with superimposed preeclampsia. She also had a nonreactive NST and was sent to L&D for induction. has been complicated by a history of preeclampsia, depression anxiety, anxiety, and obesity. Her BP has been managed with Labetalol 400mg BID and Nifedipine 60mg PO daily. She has taken ASA daily. On presentation patient endorsed good movement and denies any leakage of fluid or vaginal bleeding. O+, antibody negative, rubella immune, hepatitis B negative, hepatitis C negative, RPR negative, HIV negative 1 hour GTT: 135 GBS negative PFSH PFSH Disclaimer: The information contained in this section may have been updated after the patient was seen, as this information can be updated by other users. Medical History History of gestational diabetes Chronic hypertension affecting Abnormal electrocardiogram [ECG] [EKG] Preeclampsia Anxiety Depression Vaginal delivery A-fib Surgical History Hx of cholecystectomy Family History Grandfather Cancer Father Diabetes Hypertension Family/Other Alcoholism Social History Smoking Status: Never smoker second hand exposure: No alcohol intake: never substance use type: denies use current occupational status: unemployed Travel in the last 8 weeks: None adopted: No caregiver/support person: No foster care: No household members: spouse and children housing: house lives independently: Yes marital status: number of children: 1 service: No care home: No current occupational exposures/hazards: No pets and animals: Yes leisure activities: exercise, music, reading and other Hx Recent Travel: Yes sexually active: Yes well-balanced diet: about half the time caffeine: Yes high-fat food intake: 2 times daily daily servings fruits/ve-4 daily servings of milk/calcium: 2-4 eating out: 1-3 times/week reads food labels: seldom or never during the past year weight has: decreased > 10 lbs physical activity: walking and other frequency: 3-4 times per week duration: 15-30 minutes/day roxy/orthodoxy: None special roxy needs: No agree to transfusion: Yes helmet use: Yes drive intox or ride w/ intox residential recycle driver: No Review of Systems Review of Systems Review of systems (narrative): Review of Systems Constitutional: Denies fever, chills, and sweats Eyes: Denies vision change/ pain Respiratory: Denies cough and shortness of breath Cardiovascular: Denies chest pain and lightheadedness Gastrointestinal: Denies abdominal pain. Denies nausea, vomiting. Genitourinary: Denies dysuria and incontinence Musculoskeletal: Denies shoulder pain and back pain Neurological: Denies change in speech or headaches Meds Home Medications and Allergies Home Medications Medication Instructions Recorded Confirmed Type omega 0-dvv-adb-fish oil 1,000 mg 1 cap PO DAILY 07/05/23 04/12/24 History (120 mg-180 mg) capsule (Fish Oil) vitamins with calcium 1 tab PO DAILY 07/05/23 04/12/24 History no.72-iron 29 mg-folic acid 1 mg tablet sertraline 50 mg tablet 50 mg PO DAILY #90 tabs 10/11/23 04/12/24 Rx aspirin 81 mg tablet,delayed 81 mg PO DAILY 11/19/23 04/12/24 History release (Adult Aspirin Regimen) nifedipine 60 mg tablet,extended 60 mg PO DAILY #30 tabs 04/05/24 04/12/24 Rx release labetalol 200 mg tablet 400 mg (2 x 200 mg) PO BID #120 04/11/24 04/12/24 Rx tabs New Prescriptions to Start Prescriptions: Allergies Allergy/AdvReac Type Severity Reaction Status Date / Time sulfamethoxazole Allergy Intermediate Hives Verified 03/29/24 09:42 [From Bactrim] trimethoprim [From Bactrim] Allergy Intermediate Hives Verified 03/29/24 09:42 Exam Data for Last 24 hours Narrative: General: patient is alert oriented in no acute distress and responds appropriately to questions. HEENT: NCAT, EOMI, moist mucous membranes, neck supple with full ROM Cardiovascular: RRR +S1/S2, no murmurs or rubs Pulmonary: Clear to auscultation bilaterally, nonlabored breathing, symmetric chest rise Abdominal: Gravid abdomen appropriate for gestation. No guarding, rebound, or tenderness noted. SVE: 3cm Extremities: trace edema, no tenderness or cyanosis noted Skin: Normal turgor, intact, warm. Negative for erythema, pallor, petechia, or lesions Neurologic: Negative for sensory or motor deficit Psychiatric: Normal affect, normal thought process, good judgment and insight, no depression or anxious mood appreciated. *Routine HEENT Exam Head: Present normocephalic and atraumatic Eye: Present EOMI, PERRL and normal accommodation; Absent conjunctival icterus, scleral injection, nystagmus or exophthalmos ENT: Present mucous membranes moist *Routine Respiratory Exam Respiratory: Present CTA bilaterally, normal respiratory effort, able to speak in complete sentences and symmetric chest movement; Absent accessory muscle use, decreased breath sounds, rales, respiratory distress, wheezes, distant breath sounds or diminished air movement *Routine Cardiovascular Exam Cardiovascular: Present RRR, Normal S1 and Normal S2; Absent murmur or gallop *Routine Abdominal Exam Abdominal: Present soft and normoactive bowel sounds; Absent tenderness, distended, rebound or guarding *Routine Rectal Exam Rectal:: deferred *Routine Genitalia Exam Genitalia:: normal female Assessment and Plan *Assessment and plan (1) Non-reactive NST (non-stress test): Status: Acute Category: Medical Code(s): O28.8 - Other abnormal findings on screening of mother (2) Chronic hypertension with superimposed preeclampsia: Status: Acute Category: Medical Code(s): O11.9 - Pre-existing hypertension with pre-eclampsia, unspecified trimester (3) History of gestational diabetes: Status: Acute Category: Medical Code(s): Z86.32 - Personal history of gestational diabetes (4) Chronic hypertension affecting : Status: Acute Category: Medical Code(s): O10.919 - Unspecified pre-existing hypertension complicating , unspecified trimester (5) Obesity (BMI 30-39.9): Status: Acute Category: Medical Code(s): E66.9 - Obesity, unspecified (6) History of pre-eclampsia: Status: Acute Category: Medical Code(s): Z87.59 - Personal history of other complications of , childbirth and the puerperium (7) : Status: Acute Qualifiers: Weeks of gestation: 33 weeks Qualified Code(s): Z3A.33 - 33 weeks gestation of Category: Medical Code(s): Z34.90 - Encounter for supervision of normal , unspecified, unspecified trimester (8) Depression: Status: Acute Category: Medical Code(s): F32.A - Depression, unspecified (9) Anxiety: Status: Acute Category: Medical Code(s): F41.9 - Anxiety disorder, unspecified (10) A-fib: Status: Acute Qualifiers: Atrial fibrillation type: unspecified chronic Qualified Code(s): I48.20 - Chronic atrial fibrillation, unspecified Category: Medical Code(s): I48.91 - Unspecified atrial fibrillation Plan #38weeks gestation #Nonreactive NST #Obesity -Monitor vitals -Admit to L&D for induction of labor -Plan for induction via pitocin per protocol -External FHR and TOCO monitor -Exam on admission: /-3 - GBS-/ Blood type: O+ -Hemoglobin: 13.0, Plt: 341 -Plan for epidural -Anticipate vaginal delivery of Male : Mina #Chronic Hypertension #Superimposed preeclampsia -Continue home meds -PIH labs obtain -Follow BP closely #Depression #anxiety -Continue Zoloft 50mg, doing well
--- NOTE | 2024-04-12 12:27 | P.CONPHA_ITS ---
Pharmacy Intervention Comments: MEDICATION RECONCILIATION COMPLETED ON PATIENT USING EXTERNAL FILL HISTORY FROM PHARMACY AND LIST FROM ICT SALES REPRESENTATIVE OFFICE. -NNAMDI ZAIDID
--- NOTE | 2024-04-12 12:27 | HMH.PHAINT1 ---
Pharmacy Intervention Comments: MEDICATION RECONCILIATION COMPLETED ON PATIENT USING EXTERNAL FILL HISTORY FROM PHARMACY AND LIST FROM RESOURCE RECOVERY ENGINEER OFFICE. -NNAMDI ZAIDID
[2024-04-12 13:05] LABS: Basophils # 0.1 K/mm3 (0-0.2); Basophils % 0.6 % (0.1-2.0); Eosinophils # 0.1 K/mm3 (0.0-0.4); Eosinophils % 0.6 % (0.1-12.0); Hematocrit 38.4 % (37.0-47.0); Lymphocytes # 3.1 K/mm3 (0.7-4.5); Lymphocytes % 16.9 % (10-50); Mean Corpuscular HGB Conc 33.7 g/dL (31.8-35.4); Mean Corpuscular Hemoglobin 30.2 pg (27.0-31.2); Mean Corpuscular Volume 89.5 fl (81-99); Mean Platelet Volume 8.9 fl (7.4-10.4); Monocytes # 0.9 K/mm3 (0.1-1.0); Monocytes % 4.9 % (1.7-9.3); Neutrophils # 14.1 K/mm3 (1.8-7.8); Platelet Count 341 K/mm3 (142-424); Red Blood Count 4.29 M/mm3 (4.20-5.40); White Blood Count 18.3 K/mm3 (4.8-10.8)
[2024-04-12 13:08] LABS: MANUAL DIFFERENTIAL MANUAL DIFFERENTIAL (MANUAL DIFF)
[2024-04-12] MEDS: LABETALOL 100MG TABLET 400 MG PO ×2 (13:19→20:28)
[2024-04-12] MEDS: OXYTOCIN/RINGERS LACTATE 30 UNITS/500 ML BAG IV (13:19)
[2024-04-12] MEDS: DEXTROSE 5%-LACTATED RINGERS 1,000 ML 125 ML IV ×2 (13:20→20:41)
[2024-04-12] MEDS: LACTATED RINGERS 1000ML 1,000 ML 250 ML IV (13:20)
[2024-04-12 13:35] VITALS: BP 143/80; PULSE 86
[2024-04-12 13:42] LABS: Alanine Aminotransferase 22 U/L (12-78); Albumin Level 3.7 g/dl (3.5-5.0); Albumin/Globulin Ratio 1.2 (1.1-1.8); Alkaline Phosphatase 138 U/L (38-126); Anion Gap 14.5 mEq/L (5-15); Aspartate Amino Transferase 32 U/L (14-36); Bilirubin,Total 0.4 mg/dl (0.2-1.3); Blood Urea Nitrogen 9 mg/dl (7-17); Calcium 10.1 mg/dl (8.4-10.2); Carbon Dioxide 22 mmol/L (22.0-30.0); Chloride 104 mmol/L (98-107); Creatinine Clearance Estimated 165 mL/min (50-200); Estimated Glomerular Filt Rate 179 ml/min (>60); GFR (African American) 216 ML/MIN (>60); Glucose 93 mg/dl (74-100); Lactate Dehydrogenase 211 U/L (313-618); Potassium 4.5 mmoL/L (3.5-5.1); Sodium 136 mmol/L (136-145); Total Protein,Serum 6.7 g/dl (6.3-8.2); Uric Acid 3.7 mg/dl (2.5-6.2)
[2024-04-12 14:37] VITALS: BP 155/74; PULSE 84
[2024-04-12 14:51] LABS: Microscopic, Urine URINE MICROSCOPIC (MICROSCOPIC)
[2024-04-12 15:04] LABS: Appearance,Urine CLEAR (Clear); Bilirubin,Urine Negative (Negative); Blood, Urine Negative (Negative); Color,Urine YELLOW (Yellow); Glucose,Urine (UA) Negative (Negative); Ketones,Urine TRACE (Negative); Leukocyte Esterase,Urine 1+ (Negative); Nitrate,Urine Negative (Negative); Protein,Urine Negative (Negative); Specific Gravity, Urine >= 1.030 (1.005-1.030); Urobilinogen,Urine 0.2 EU/dl (0.2)
[2024-04-12 15:16] LABS: Amphetamine/Metha Screen,Urine Negative ng/ml (<1000); Barbiturates Screen,Urine Negative ng/ml (<200)
[2024-04-12 15:17] LABS: Benzodiazepines Screen,Urine Negative ng/ml (<200)
[2024-04-12 15:18] LABS: Cannabinoid Screen,Urine Negative ng/ml (<50); Cocaine Screen,Urine Negative ng/ml (<300)
[2024-04-12 15:19] LABS: Methadone Screen,Urine Negative ng/ml (<300)
[2024-04-12 15:20] LABS: Opiate Screen,Urine Negative ng/ml (<300); Phencyclidine Screen,Urine Negative ng/ml (<25)
[2024-04-12 15:27] VITALS: BP 136/65; PULSE 90
[2024-04-12 15:28] LABS: RBC,Urine Occasional #/hpf (0-3)
[2024-04-12 15:29] LABS: Bacteria,Urine Trace /lpf; Calcium Oxalate Crystals,Urine Trace /lpf; Squamous Epithelial Cell,Urine Occasional #/hpf (0-5)
[2024-04-12 15:33] LABS: Eosinophils % 1 % (0-3); Lymphocytes % 18 % (10-50); Monocytes % 9 % (2-9); Neutrophils % 72 % (42-76); Platelet Estimate Normal; RBC Morphology Normal; Total Cells Counted 100
[2024-04-12] MEDS: ePHEDrine SULF 50MG/ML VIAL 10 MG IV (16:31)
[2024-04-12 16:32] VITALS: BP 113/60; PULSE 85
--- NOTE | 2024-04-12 16:37 | P.PNANES_ITS ---
[facility] Disclaimer: The information contained in this section may have been updated after the patient was seen, as this information can be updated by other users. Medical History History of gestational diabetes Chronic hypertension affecting Abnormal electrocardiogram [ECG] [EKG] Preeclampsia Anxiety Depression Vaginal delivery A-fib Surgical History Hx of cholecystectomy Family History Grandfather Cancer Father Diabetes Hypertension Family/Other Alcoholism Social History (Updated 04/12/24 @ 15:19 by Neha Hickey RN) Smoking Status: Never smoker second hand exposure: No alcohol intake: never substance use type: denies use current occupational status: unemployed Travel in the last 8 weeks: None adopted: No caregiver/support person: No foster care: No household members: spouse and children housing: house lives independently: Yes marital status: number of children: 1 service: No shelter: No current occupational exposures/hazards: No pets and animals: Yes leisure activities: exercise, music, reading and other Hx Recent Travel: Yes sexually active: Yes well-balanced diet: about half the time caffeine: Yes high-fat food intake: 2 times daily daily servings fruits/ve-4 daily servings of milk/calcium: 2-4 eating out: 1-3 times/week reads food labels: seldom or never during the past year weight has: decreased > 10 lbs physical activity: walking and other frequency: 3-4 times per week duration: 15-30 minutes/day roxy/baptism: None special roxy needs: No agree to transfusion: Yes helmet use: Yes drive intox or ride w/ intox retail delivery driver: No [facility] [place] Anesthesia Checklist Patient Identification Patient Identification: Arm Band Structural Data Admitted From: Inpatient Planned Operative Procedure/s: Labor Epidural Consent for Planned Operative Procedure(s) Verified: Yes Verified Documents: Surgical Consent and History and Physical NPO Status Verified Time NPO: 00:00 Additional verifications Anesthesia Reactions: No Airway Assessment Mallampati Score:: Class II C-Spine Mobility Assessed: Yes TMJ Mobility Assessed: Yes Dentition: Good Dentition Neurological Assessment Level of Consciousness: Awake, Alert and Appropriate Anesthesia Plan Anesthesia Risk discussed: Yes Anesthesia Plan: Verified ASA Class: II Anesthesia Type: Epidural
[2024-04-12 17:02] VITALS: BP 113/57; PULSE 87; RESP 17
[2024-04-12] MEDS: SERTRALINE 50MG TABLET 50 MG PO (20:41)
--- NOTE | 2024-04-12 21:12 | EXP.LABOR.NO ---
Labor Note Subjective: Date: 04/12/24 Time: 21:12 irregular contractions Comment:: Came in after phone call from the RN secondary to the the pitocin being turned off with a category two strip. When I arrived it was a category one strip- baseline: 135/ moderate variability/ no accelerations/ no decelerations. We will wait for the fetus to have a reactive strip prior to restarting pitocin. Objective: NST:: Non-reactive Contractions:: infrequent Cervical Dilation:: 5-6 Effacement:: 90% Station: -1 Membranes: ruptured (clear fluid) Fetus: Monitoring?: Yes monitoring type:: Internal and External Plan: Anesthesia for epidural?: Yes Continue to monitor?: Yes
[2024-04-13] MEDS: DEXTROSE 5%-LACTATED RINGERS 1,000 ML 125 ML IV (04:46)
[2024-04-13] MEDS: OXYTOCIN/RINGERS LACTATE 30 UNITS/500 ML BAG 40 UNITS IV (06:07)
--- NOTE | 2024-04-13 06:08 | EXP.DN ---
Delivery Note Delivery Date:: 04/13/24 Delivery Time:: 05:48 Anesthesia Type: Epidural Was labor medically induced?: Yes Induction method: AROM Gestational age (weeks): 38 Infant delivered prior to 39 weeks?: Yes Justification for early elective delivery:: Pre-eclampsia and Other (non reactive NST) Infant Gender: Male at 1 minute: 8 at 5 minutes: 8 LAC or MLE?: LAC Delivery Procedure:: Preoperative diagnosis: 1. at 38 completed this weeks gestation, vertex 2. Chronic hypertension with superimposed preeclampsia 3. Maternal obesity 4. Nonreactive NST 5. Anxiety and depression 6. A-fib 7. Rh positive 8. GBS negative 9. Advanced maternal age Postoperative diagnosis: 1. at 38 completed this weeks gestation, vertex 2. Chronic hypertension with superimposed preeclampsia 3. Maternal obesity 4. Nonreactive NST 5. Anxiety and depression 6. A-fib 7. Rh positive 8. GBS negative 9. Advanced maternal age EBL: 300mL Specimen: 1. Cord blood Findings: 1. Liveborn viable male : Mina. Apgars 8/8 at 1 and 5 minutes respectively. Weight pending at time of dictation 2. 2nd degree midline perineal laceration Complications: None Procedure: Nonoperative spontaneous vaginal delivery Tahira Suazo is a 38-year-old G2, P1 who presented to my office for an NST. NST was found to be nonreactive and results from previous preeclampsia evaluation had resulted and showed proteinuria diagnosing her with chronic hypertension with superimposed preeclampsia. Decision was made to send the patient for induction. Induction was initiated per Pitocin protocol with artificial rupture membranes revealing clear fluid. Around 7:00 the patient had a category 2 strip and Pitocin was required to be turned off for infant recovery. Orders were given to not start restart Pitocin until the strip was reactive. The patient continued to labor and progressed to complete without Pitocin augmentation. I was called in for delivery and the head was and the was on the perineum. With 1 effective maternal push there was a nonoperative spontaneous vaginal delivery at 0548. There was a nuchal cord x1 that was reduced without difficulty. The anterior right shoulder delivered, followed by the posterior shoulder without dystocia. The body and lower extremities delivered without difficulty. The infant was bulb suctioned and was crying immediately following delivery. The infant was placed on the maternal abdomen and greater than one minute was appreciated for delayed cord clamping. The umbilical cord was doubly clamped and cut. Cord blood was collected and sent for routine testing. The placenta delivered with cord traction and suprapubic contertraction. Pitocin was started and the placenta and cord were inspected and noted to be intact. The uterus was firm and bleeding was minimal. The perineum, vaginal zarate, cervix, and paraurethral area were inspected thoroughly. There was a second-degree midline perineal laceration. The laceration was repaired in the usual fashion using 2-0 and 3 oh Vicryl suture. The laceration was hemostatic. The cervix and vaginal zarate were inspected and noted to be hemostatic. This concluded the delivery. The patient was counseled regarding the events of the delivery and repair. The patient tolerated the delivery well. All counts were correct by nursing. Mother and were doing well and bonding upon my leaving the delivery room. Placental Delivery Description: Spontaneous
[2024-04-13] MEDS: NIFEdipine XL 30MG TABLET 60 MG PO (06:15)
[2024-04-13] MEDS: IBUPROFEN 400 MG TABLET 800 MG PO ×2 (07:25→15:30)
[2024-04-13] MEDS: ACETAMINOPHEN 500MG TAB 1000 MG PO ×3 (07:25→19:28)
[2024-04-13 09:15] VITALS: BP 141/71; PULSE 89; RESP 16; TEMP 36.7; O2SAT 96
[2024-04-13] MEDS: LABETALOL 100MG TABLET 400 MG PO ×2 (11:01→14:23)
[2024-04-13 15:35] VITALS: BP 136/78; PULSE 96; RESP 16; TEMP 36.5; O2SAT 97
[2024-04-13] MEDS: PRENATAL MULTIVITAMIN W/IRON 1 EACH PO (17:23)
[2024-04-13] MEDS: SERTRALINE 50MG TABLET 50 MG PO (20:48)
[2024-04-14 07:19] LABS: Basophils # 0.1 K/mm3 (0-0.2); Basophils % 0.4 % (0.1-2.0); Eosinophils # 0.3 K/mm3 (0.0-0.4); Eosinophils % 1.5 % (0.1-12.0); Hematocrit 34.9 % (37.0-47.0); Hemoglobin 11.3 g/dL (12.2-16.2); Lymphocytes # 3.7 K/mm3 (0.7-4.5); Lymphocytes % 20.6 % (10-50); Mean Corpuscular HGB Conc 32.4 g/dL (31.8-35.4); Mean Corpuscular Hemoglobin 29.7 pg (27.0-31.2); Mean Corpuscular Volume 91.9 fl (81-99); Mean Platelet Volume 8.9 fl (7.4-10.4); Monocytes # 0.8 K/mm3 (0.1-1.0); Monocytes % 4.3 % (1.7-9.3); Neutrophils # 13.3 K/mm3 (1.8-7.8); Neutrophils % 73.2 % (37.0-80.0); Platelet Count 310 K/mm3 (142-424); Red Blood Count 3.79 M/mm3 (4.20-5.40); Red Cell Distribution Width 14.2 % (11.5-17.5); White Blood Count 18.2 K/mm3 (4.8-10.8)
[2024-04-14 07:22] LABS: MANUAL DIFFERENTIAL MANUAL DIFFERENTIAL (MANUAL DIFF)
[2024-04-14 07:49] VITALS: BP 141/82; PULSE 96; RESP 17; TEMP 36.7; O2SAT 96
[2024-04-14 08:27] LABS: Eosinophils % 1 % (0-3); Lymphocytes % 19 % (10-50); Monocytes % 2 % (2-9); Neutrophils % 78 % (42-76); RBC Morphology Normal; Total Cells Counted 100
[2024-04-14 08:28] LABS: Platelet Estimate Normal
[2024-04-14] MEDS: LABETALOL 100MG TABLET 400 MG PO (09:23)
[2024-04-14 10:00] VITALS: BP 144/77
[2024-04-14 12:55] VITALS: BP 123/58
--- NOTE | 2024-04-14 12:59 | EXP.DC.SUM ---
General Admission date:: 04/12/24 Discharge date: 04/14/24 HPI HPI HPI: Tahira is a 38yo who presented to the office today where she was diagnosed with chronic hypertension with superimposed preeclampsia. She also had a nonreactive NST and was sent to L&D for induction. has been complicated by a history of preeclampsia, depression anxiety, anxiety, and obesity. Her BP has been managed with Labetalol 400mg BID and Nifedipine 60mg PO daily. She has taken ASA daily. On presentation patient endorsed good movement and denies any leakage of fluid or vaginal bleeding. O+, antibody negative, rubella immune, hepatitis B negative, hepatitis C negative, RPR negative, HIV negative 1 hour GTT: 135 GBS negative Hospital Course Hospital Course Hospital Course: Shona is a 38-year-old G3, P2 day #1 from a normal spontaneous vaginal delivery at 38 weeks and 4 days after nonreactive NST and chronic hypertension with recently diagnosed superimposed preeclampsia. She is rubella immune and GBS negative. Her blood type is O+. She had a male infant that weighed 7 pounds and 3 ounces and was 20 inches long. Her Apgars were 7 and 8. Her EBL was 300. She is breast-feeding. Her blood pressure has been well-controlled during her labor and delivery stay. We will hold her nifedipine at discharge and continue her labetalol at 400 mg twice daily. She will follow-up early next week for blood pressure check. She is ambulating, voiding, and tolerating p.o. without difficulty, dysuria, or nausea and vomiting. She desires discharge home today. Routine discharge instructions reviewed with patient in detail and she voiced understanding. All questions and concerns were addressed with patient satisfaction. I reviewed the importance of monitoring for elevated blood pressure in the period given her risk for eclampsia. Exam Data for Last 24 hours Vital signs and Labs for Last 24 Hours: Temp Pulse Resp BP Pulse Ox O2 Del Method 98.1 F 96 H 17 123/58 L 96 Room Air 04/14/24 07:49 04/14/24 07:49 04/14/24 07:49 04/14/24 12:55 04/14/24 07:49 04/14/24 07:49 Laboratory Results - last 24 hr 04/12/24 12:00: Urine Color Yellow, Urine Appearance Clear, Urine pH 6.0, Ur Specific [place] >= 1.030, Urine Protein Negative, Urine Glucose (UA) Negative, Urine Ketones Trace, Urine Blood Negative, Urine Nitrate Negative, Urine Bilirubin Negative, Urine Urobilinogen 0.2, Ur Leukocyte Esterase 1+ A, Urine RBC Occasional, Urine WBC 5-10, Ur Squamous Epith Cells Occasional, Calcium Oxalate Crystal Trace, Urine Bacteria Trace, Urine Opiates Screen Negative, Urine Methadone Screen Negative, Ur Barbituates Screen Negative, Ur Phencyclidine Scrn Negative, Ur Amphetamines Screen Negative, U Benzodiazepines Scrn Negative, Urine Cocaine Screen Negative, U Marijuana (THC) Screen Negative 04/14/24 06:42: WBC 18.2 H, RBC 3.79 L, Hgb 11.3 L, Hct 34.9 L, MCV 91.9, MCH 29.7, MCHC 32.4, RDW 14.2, Plt Count 310, MPV 8.9, Neut % (Auto) 73.2, Lymph % (Auto) 20.6, [place] % (Auto) 4.3, Eos % (Auto) 1.5, Baso % (Auto) 0.4, Neut # (Auto) 13.3 H, Lymph # (Auto) 3.7, [place] # (Auto) 0.8, Eos # (Auto) 0.3, Baso # (Auto) 0.1, Total Counted 100, Neutrophils % (Manual) 78 H, Lymphocytes % (Manual) 19, Monocytes % (Manual) 2, Eosinophils % (Manual) 1, Platelet Estimate Normal, RBC Morphology Normal I & O for Last 24 hours: Intake & Output 04/11/24 04/12/24 04/13/24 04/14/24 23:59 23:59 23:59 23:59 Weight 248 lb Microbiology Reports for the Last 24 Hours: Microbiology 04/12/24 12:00 Urine,Clean Catch Urine Culture - Preliminary Gram Negative Rods Constitutional Constitutional: no acute distress *Routine HEENT Exam Head: Present normocephalic Eye: Present EOMI and PERRL ENT: Present mucous membranes moist *Routine Neck Exam Neck: Present supple; Absent lymphadenopathy *Routine Respiratory Exam Respiratory: Present CTA bilaterally *Routine Cardiovascular Exam Cardiovascular: Present RRR *Routine Abdominal Exam Abdominal: Present soft and normoactive bowel sounds; Absent tenderness *Routine Extremities Exam Extremities: Absent cyanosis, clubbing or edema *Routine Skin Exam Skin: Present warm; Absent rash *Routine Neurological Exam Neurological: Present alert and oriented X3 Results Data Completed and Pending Labs on day of discharge: Labs from last 24 hours 04/14/24 04/12/24 06:42 12:00 WBC 18.2 H RBC 3.79 L Hgb 11.3 L Hct 34.9 L MCV 91.9 MCH 29.7 MCHC 32.4 RDW 14.2 Plt Count 310 MPV 8.9 Neut % (Auto) 73.2 Lymph % (Auto) 20.6 [place] % (Auto) 4.3 Eos % (Auto) 1.5 Baso % (Auto) 0.4 Neut # (Auto) 13.3 H Lymph # (Auto) 3.7 [place] # (Auto) 0.8 Eos # (Auto) 0.3 Baso # (Auto) 0.1 Total Counted 100 Neutrophils % (Manual) 78 H Lymphocytes % (Manual) 19 Monocytes % (Manual) 2 Eosinophils % (Manual) 1 Platelet Estimate Normal RBC Morphology Normal Urine Color Yellow Urine Appearance Clear Urine pH 6.0 Ur Specific [place] >= 1.030 Urine Protein Negative Urine Glucose (UA) Negative Urine Ketones Trace Urine Blood Negative Urine Nitrate Negative Urine Bilirubin Negative Urine Urobilinogen 0.2 Ur Leukocyte Esterase 1+ A Urine RBC Occasional Urine WBC 5-10 Ur Squamous Epith Cells Occasional Calcium Oxalate Crystal Trace Urine Bacteria Trace Urine Opiates Screen Negative Urine Methadone Screen Negative Ur Barbituates Screen Negative Ur Phencyclidine Scrn Negative Ur Amphetamines Screen Negative U Benzodiazepines Scrn Negative Urine Cocaine Screen Negative U Marijuana (THC) Screen Negative Preliminary micro results at discharge 04/12/24 12:00 Urine Culture - Preliminary Urine,Clean Catch Gram Negative Rods DS: Diagnosis Discharge Diagnosis (1) Non-reactive NST (non-stress test): Status: Acute Code(s): O28.8 - Other abnormal findings on screening of mother (2) Chronic hypertension with superimposed preeclampsia: Status: Acute Code(s): O11.9 - Pre-existing hypertension with pre-eclampsia, unspecified trimester (3) History of gestational diabetes: Status: Acute Code(s): Z86.32 - Personal history of gestational diabetes (4) Chronic hypertension affecting : Status: Acute Code(s): O10.919 - Unspecified pre-existing hypertension complicating , unspecified trimester (5) Obesity (BMI 30-39.9): Status: Acute Code(s): E66.9 - Obesity, unspecified (6) History of pre-eclampsia: Status: Acute Code(s): Z87.59 - Personal history of other complications of , childbirth and the puerperium (7) : Status: Acute Code(s): Z34.90 - Encounter for supervision of normal , unspecified, unspecified trimester Qualifiers: Weeks of gestation: 33 weeks Qualified Code(s): Z3A.33 - 33 weeks gestation of (8) Depression: Status: Acute Code(s): F32.A - Depression, unspecified (9) Anxiety: Status: Acute Code(s): F41.9 - Anxiety disorder, unspecified (10) A-fib: Status: Acute Code(s): I48.91 - Unspecified atrial fibrillation Qualifiers: Atrial fibrillation type: unspecified chronic Qualified Code(s): I48.20 - Chronic atrial fibrillation, unspecified Meds Home Medications and Allergies Home Medications Medication Instructions Recorded Confirmed Type omega 4-xep-qeb-fish oil 1,000 mg 1 cap PO DAILY 07/05/23 04/12/24 History (120 mg-180 mg) capsule (Fish Oil) vitamins with calcium 1 tab PO DAILY 07/05/23 04/12/24 History no.72-iron 29 mg-folic acid 1 mg tablet sertraline 50 mg tablet 50 mg PO DAILY #90 tabs 10/11/23 04/12/24 Rx nifedipine 60 mg tablet,extended 60 mg PO DAILY #30 tabs 04/05/24 04/12/24 Rx release labetalol 200 mg tablet 400 mg (2 x 200 mg) PO BID #120 04/11/24 04/12/24 Rx tabs acetaminophen 500 mg tablet 500 mg PO Q6H PRN fever #30 tabs 04/14/24 Rx ibuprofen 800 mg tablet 800 mg PO Q8H PRN pain #60 tabs 04/14/24 Rx New Prescriptions to Start Prescriptions: acetaminophen David,Miesha ibuprofen David,Miesha Allergies Allergy/AdvReac Type Severity Reaction Status Date / Time sulfamethoxazole Allergy Intermediate Hives Verified 03/29/24 09:42 [From Bactrim] trimethoprim [From Bactrim] Allergy Intermediate Hives Verified 03/29/24 09:42 Discharge Plan Disposition Patient Disposition: Home, Self-Care Condition: Good Discharge Order Discharge Orders: Discharge Order (Routine); Ordered 04/14/24 Ordered By: Miesha Hernandez Follow up Plan Follow up with: Miesha Hernandez DO [Staff Physician] - 04/26/24 11:00 am (March, at 145 pm for blood pressure check. ) Prescriptions/Medication Reconciliation: New ibuprofen 800 mg tablet 800 mg PO Q8H PRN (Reason: pain) Qty: 60 2RF acetaminophen 500 mg tablet 500 mg PO Q6H PRN (Reason: fever) Qty: 30 3RF Continued omega 6-gzj-pzj-fish oil [Fish Oil] 1,000 mg (120 mg-180 mg) capsule 1 cap PO DAILY PNV,calcium 72-iron,carb-folic 29 mg iron- 1 mg tablet 1 tab PO DAILY sertraline 50 mg tablet 50 mg PO DAILY Qty: 90 1RF nifedipine 60 mg tablet extended release 60 mg PO DAILY Qty: 30 3RF labetalol 200 mg tablet 400 mg PO BID Qty: 120 1RF Discontinued aspirin [Adult Aspirin Regimen] 81 mg tablet,delayed release (DR/EC) 81 mg PO DAILY Problem Reconciliation Problems Reviewed?: Yes Patient Discharge Instructions ACTIVITY: Continue current activity DIET: regular diet Additional Instructions: Congratulations on the delivery of your sweet baby boy. It is my privilege to be your doctor and I am so thankful I could be a part of your special day. Discharge: -Take 800 mg Ibuprofen every 8 hours as needed for pain. You can also take 500-1000 mg of Tylenol in between doses, every 6-8 hours. -Colace can be taken 1-2 times per day as you need to soften your stool. Make sure to drink at least 8 cups of water per day. -Iron supplements can make you constipated. You can take iron tablets every other day if constipation is too bad. -Nothing in the vagina for 6 weeks - no sex, douching, tampons. No tub baths -Do not lift greater than 15 pounds for 6 weeks, this is the equivalent of 2 gallons of milk. -Reasons to return to L&D or call On-Call doctor - fever (greater than 100.4) - heavy vaginal bleeding (soaking through 1 pad in less than 2 hours or passing clots that are egg sized) - vaginal discharge (malodorous and/or purulent) - severe headaches, leg tenderness/edema, or any other symptoms that warrant immediate medical attention. depression/blues - Normal to feel anxious/overwhelmed for first 2 weeks - Talk to your doctor if: anxiety lasts over 2 weeks, trouble bonding with baby, withdrawing from other family members, thoughts of harming yourself or others Blood pressure and preeclampsia instructions -You will follow up next week for a blood pressure check. We discussed the increased risk for eclampsia. Given your controlled blood pressure we will hold your nifedipine at discharge. Continue your labetalol at 400mg PO twice daily. 1. Please take your blood pressure twice daily. 2. Please call if greater than 2 values are higher than: 150 systolic (the top number) or 100 diastolic (the bottom number). 3. Please go to the emergency room or labor and delivery triage if any value is higher than: 160 systolic (the top number) or 110 diastolic (the bottom number). 4. Please call if unrelenting headache (does not go away with rest or Tylenol or ibuprofen), changes in vision (spots, floaters, flashes of light), chest pain, shortness of breath, or right upper quadrant (liver) abdominal pain. Miesha Hernandez DO [facility] [phone] *Nothing in the Vagina for 6 weeks* *No strenuous activity* *No heavy lifting* *No tub baths until okay's by MD* Patient Instructions: Depression, Hemorrhage, DI for Labor and Delivery, Vaginal , DI for Pre-eclampsia, [facility] Post Discharge Instructions Providers Primary Care Provider: Santi Melara Admit Provider: Miesha Hernandez Attending Provider: Miesha Hernandez
[2024-04-14] MEDS: ACETAMINOPHEN 500MG TAB 1000 MG PO (13:02)
[2024-04-14 16:09] VITALS: BP 153/73; PULSE 95; RESP 17; TEMP 37; O2SAT 97
== END 2024-04-14 18:21 | disposition home or self-care (01) | DRG 807 ==
LOC: OB 11:49 → OBOUT 11:50 → OB 11:50
PROVIDERS: Admitting Provider Obstetrics & Gynecology; PCP Family Medicine; Visit Provider Obstetrics & Gynecology
DX: O70.1 Second degree perineal laceration during delivery (principal); Z37.0 Single live birth; O11.4 Pre-existing hypertension with pre-eclampsia, complicating childbirth; Z3A.38 38 weeks gestation of pregnancy; O99.214 Obesity complicating childbirth; O99.344 Other mental disorders complicating childbirth; F32.A Depression, unspecified; F41.9 Anxiety disorder, unspecified
CPT/HCPCS: 59409; 36415; 59025; 80053; 80307; 81001; 83615; 84550; 85007; 85025; 86850; 87086; 87088; 87186; 94761; G0283; J3010; J7120

== ENCOUNTER 2024-04-18 14:33 | Observation (INO) | payer OTHER, SELFPAY ==
[2024-04-18] VITALS (45 sets, daily range): BP systolic 119–197; BP diastolic 57–112; PULSE 79–105; RESP 16–20; TEMP 36.7–36.9; O2SAT 93–99; BMI 42.5
[2024-04-18] MEDS: LABETALOL 20MG/4ML SYRINGE 20 MG IV (15:10)
[2024-04-18] MEDS: LACTATED RINGERS 1000ML 1,000 ML 75 ML IV (15:22)
[2024-04-18] MEDS: MAGNESIUM SULFATE IN WATER 4 GM/50 ML PIGGYBACK IV (15:23)
[2024-04-18 15:25] LABS: Microscopic, Urine URINE MICROSCOPIC (MICROSCOPIC)
[2024-04-18 15:29] LABS: Basophils # 0.1 K/mm3 (0-0.2); Basophils % 0.7 % (0.1-2.0); Eosinophils # 0.4 K/mm3 (0.0-0.4); Eosinophils % 3.3 % (0.1-12.0); Hematocrit 35.1 % (37.0-47.0); Hemoglobin 11.7 g/dL (12.2-16.2); Lymphocytes # 3.7 K/mm3 (0.7-4.5); Lymphocytes % 29.8 % (10-50); Mean Corpuscular HGB Conc 33.3 g/dL (31.8-35.4); Mean Corpuscular Hemoglobin 30.5 pg (27.0-31.2); Mean Corpuscular Volume 91.6 fl (81-99); Mean Platelet Volume 8.5 fl (7.4-10.4); Monocytes # 0.6 K/mm3 (0.1-1.0); Monocytes % 4.6 % (1.7-9.3); Neutrophils # 7.6 K/mm3 (1.8-7.8); Neutrophils % 61.6 % (37.0-80.0); Platelet Count 448 K/mm3 (142-424); Red Blood Count 3.83 M/mm3 (4.20-5.40); Red Cell Distribution Width 13.7 % (11.5-17.5); White Blood Count 12.3 K/mm3 (4.8-10.8)
[2024-04-18 15:33] LABS: Appearance,Urine CLEAR (Clear); Bilirubin,Urine Negative (Negative); Blood, Urine 3+ (Negative); Color,Urine YELLOW (Yellow); Glucose,Urine (UA) Negative (Negative); Ketones,Urine Negative (Negative); Leukocyte Esterase,Urine 2+ (Negative); Nitrate,Urine Negative (Negative); Protein,Urine TRACE (Negative); Specific Gravity, Urine 1.025 (1.005-1.030); Urobilinogen,Urine 0.2 EU/dl (0.2)
[2024-04-18] MEDS: LABETALOL 20MG/4ML SYRINGE 40 MG IV (15:34)
[2024-04-18 15:41] LABS: Chloride 107 mmol/L (98-107); Creatinine,Urine Random 125 mg/dL (Not Estab.); Potassium 3.9 mmoL/L (3.5-5.1); Sodium 137 mmol/L (136-145)
[2024-04-18 15:43] LABS: Blood Urea Nitrogen 10 mg/dl (7-17); Creatinine Clearance Estimated 94 mL/min (50-200); Estimated Glomerular Filt Rate 94 ml/min (>60); GFR (African American) 113 ML/MIN (>60)
[2024-04-18 15:44] LABS: Alanine Aminotransferase 33 U/L (12-78); Anion Gap 7.9 mEq/L (5-15); Aspartate Amino Transferase 35 U/L (14-36); Calcium 9.3 mg/dl (8.4-10.2); Carbon Dioxide 26 mmol/L (22.0-30.0); Glucose 89 mg/dl (74-100); Magnesium 1.7 mg/dl (1.6-2.3)
[2024-04-18 15:46] LABS: Bacteria,Urine 1+ /lpf; RBC,Urine Occasional #/hpf (0-3)
[2024-04-18 15:47] LABS: Activated Partial Thrombo Time 28.2 seconds (22.8-30.6); Fibrinogen 395 mg/dL (229.9-363.5); INR 0.95 (0.9-1.1); Prothrombin Time 10.3 seconds (10.1-12.5)
[2024-04-18] MEDS: MAGNESIUM SULFATE IN WATER 20 GM/500 ML IV.SOLN IV (15:49)
[2024-04-18] MEDS: LABETALOL 5MG/ML 20ML MDV 80 MG IV (15:53)
[2024-04-18] MEDS: NIFEdipine XL 30MG TABLET 60 MG PO (16:00)
[2024-04-18 16:05] LABS: Uric Acid 7.2 mg/dl (2.5-6.2)
--- NOTE | 2024-04-18 16:29 | P.HP_ITS ---
History of Present Illness *Admission Date: 04/18/24 *Reason for visit:: Severe range blood pressures *History of present illness: Tahira Sauzo is a 38-year-old who presented to the office for a nurse visit for blood pressure check. She was noted to have severe range blood pressures and sent immediately to labor and delivery. Her blood pressure was persistently severe range upon arrival. Patient denies any headaches or vision changes. Denies any right upper quadrant pain. At time of delivery and for her hospital stay her blood pressure was low at her home blood pressure medicines were discontinued. She does have a history of chronic hypertension. [facility] Disclaimer: The information contained in this section may have been updated after the patient was seen, as this information can be updated by other users. Medical History History of gestational diabetes Chronic hypertension affecting Abnormal electrocardiogram [ECG] [EKG] Preeclampsia Anxiety Depression Vaginal delivery A-fib Surgical History Hx of cholecystectomy Family History Grandfather Cancer Father Diabetes Hypertension Family/Other Alcoholism Social History (Updated 04/12/24 @ 15:19 by Neha Hickey RN) Smoking Status: Never smoker second hand exposure: No alcohol intake: never substance use type: denies use current occupational status: unemployed Travel in the last 8 weeks: None adopted: No caregiver/support person: No foster care: No household members: spouse and children housing: house lives independently: Yes marital status: number of children: 1 service: No halfway: No current occupational exposures/hazards: No pets and animals: Yes leisure activities: exercise, music, reading and other Hx Recent Travel: Yes sexually active: Yes well-balanced diet: about half the time caffeine: Yes high-fat food intake: 2 times daily daily servings fruits/ve-4 daily servings of milk/calcium: 2-4 eating out: 1-3 times/week reads food labels: seldom or never during the past year weight has: decreased > 10 lbs physical activity: walking and other frequency: 3-4 times per week duration: 15-30 minutes/day roxy/latter-day: None special roxy needs: No agree to transfusion: Yes helmet use: Yes drive intox or ride w/ intox 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 Denies nausea, vomiting. Genitourinary: Denies dysuria and incontinence Musculoskeletal: Denies shoulder pain and back pain Neurological: Denies change in speech or headaches Meds Home Medications and Allergies Home Medications Medication Instructions Recorded Confirmed Type omega 6-xao-alc-fish oil 1,000 mg 1 cap PO DAILY 07/05/23 04/18/24 History (120 mg-180 mg) capsule (Fish Oil) vitamins with calcium 1 tab PO DAILY 07/05/23 04/18/24 History no.72-iron 29 mg-folic acid 1 mg tablet sertraline 50 mg tablet 50 mg PO DAILY #90 tabs 10/11/23 04/18/24 Rx labetalol 200 mg tablet 400 mg (2 x 200 mg) PO BID #120 04/11/24 04/18/24 Rx tabs acetaminophen 500 mg tablet 500 mg PO Q6H PRN fever #30 tabs 04/14/24 04/18/24 Rx ibuprofen 800 mg tablet 800 mg PO Q8H PRN pain #60 tabs 04/14/24 04/18/24 Rx New Prescriptions to Start Prescriptions: Allergies Allergy/AdvReac Type Severity Reaction Status Date / Time sulfamethoxazole Allergy Intermediate Hives Verified 04/18/24 13:38 [From Bactrim] trimethoprim [From Bactrim] Allergy Intermediate Hives Verified 04/18/24 13:38 Exam Data for Last 24 hours Vital signs and Labs for Last 24 Hours: BP 168/82 H 04/18/24 15:53 Laboratory Results - last 24 hr 04/18/24 15:20: WBC 12.3 H, RBC 3.83 L, Hgb 11.7 L, Hct 35.1 L, MCV 91.6, MCH 30.5, MCHC 33.3, RDW 13.7, Plt Count 448 H, MPV 8.5, Neut % (Auto) 61.6, Lymph % (Auto) 29.8, Ray % (Auto) 4.6, Eos % (Auto) 3.3, Baso % (Auto) 0.7, Neut # (Auto) 7.6, Lymph # (Auto) 3.7, [place] # (Auto) 0.6, Eos # (Auto) 0.4, Baso # ( Auto) 0.1, PT 10.3, INR 0.95, APTT 28.2, Fibrinogen 395 H, Sodium 137, Potassium 3.9, Chloride 107, Carbon Dioxide 26, Anion Gap 7.9, BUN 10, Creatinine 0.70, Estimated Creat Clear 94, Estimated GFR 94, Est GFR ( Amer) 113, Glucose 89, Uric Acid 7.2 H, Calcium 9.3, Magnesium 1.7, AST 35, ALT 33, Urine Color Yellow, Urine Appearance Clear, Urine pH 6.0, Ur Specific [place] 1.025, Urine Protein Trace, Urine Glucose (UA) Negative, Urine Ketones Negative, Urine Blood 3+, Urine Nitrate Negative, Urine Bilirubin Negative, Urine Urobilinogen 0.2, Ur Leukocyte Esterase 2+ A, Urine RBC Occasional, Urine WBC 10-20, Ur Squamous Epith Cells 3-5, Urine Bacteria 1+, Urine Creatinine 125, Urine Total Protein 29.0 H I & O for Last 24 hours: Intake & Output 04/15/24 04/16/24 04/17/24 04/18/24 23:59 23:59 23:59 23:59 Weight 248 lb *Routine HEENT Exam Head: Present normocephalic and atraumatic Eye: Present EOMI, PERRL and normal accommodation; Absent conjunctival icterus, scleral injection, nystagmus or exophthalmos ENT: Present mucous membranes moist *Routine Respiratory Exam Respiratory: Present CTA bilaterally, normal respiratory effort, able to speak in complete sentences and symmetric chest movement; Absent accessory muscle use, decreased breath sounds, rales, respiratory distress, wheezes, distant breath sounds or diminished air movement *Routine Cardiovascular Exam Cardiovascular: Present RRR, Normal S1 and Normal S2; Absent murmur or gallop *Routine Abdominal Exam Abdominal: Present soft and normoactive bowel sounds; Absent tenderness, distended, rebound or guarding *Routine Rectal Exam Rectal:: deferred *Routine Genitalia Exam Genitalia:: normal female Assessment and Plan *Assessment and plan (1) Chronic hypertension with superimposed preeclampsia: Status: Acute Category: Medical Code(s): O11.9 - Pre-existing hypertension with pre-eclampsia, unspecified trimester (2) History of pre-eclampsia: Status: Acute Category: Medical Code(s): Z87.59 - Personal history of other complications of , childbirth and the puerperium (3) Obesity (BMI 30-39.9): Status: Acute Category: Medical Code(s): E66.9 - Obesity, unspecified (4) Chronic hypertension affecting : Status: Acute Category: Medical Code(s): O10.919 - Unspecified pre-existing hypertension complicating , unspecified trimester (5) Anxiety: Status: Acute Category: Medical Code(s): F41.9 - Anxiety disorder, unspecified (6) A-fib: Status: Acute Qualifiers: Atrial fibrillation type: unspecified chronic Qualified Code(s): I48.20 - Chronic atrial fibrillation, unspecified Category: Medical Code(s): I48.91 - Unspecified atrial fibrillation (7) Depression: Status: Acute Category: Medical Code(s): F32.A - Depression, unspecified Plan Initiate magnesium Follow labetalol severe range blood pressure protocol Reviewed PIH labs and within normal limits Reviewed urine culture from hospital stay which has bacterial growth however it is in low colony-forming units. Based on the patient's allergies and the sensitivities of the culture decision was made to give 1 dose of Rocephin Strict I's and O's with Wilson catheter anchored Vitals should be checked to include DTRs and respirations as well as input and output every 1-2 hours for the next 24 hours. Obtain a magnesium serum level 2 hours after initial dose Restart home medications to include nifedipine 60 mg daily and labetalol 400 mg 3 times daily. On discharge this was decreased to twice daily but we will increase it back Monitor the patient closely
[2024-04-18] MEDS: HYDRALAZINE 20MG/ML VIAL 5 MG IV (17:13)
--- NOTE | 2024-04-18 17:30 | PC.NURSE ---
Bilateral lung sounds clear, throughout.
[2024-04-18] MEDS: cefTRIAXone 1GM VIAL 1 GM IM (17:42)
[2024-04-18] MEDS: HYDRALAZINE 20MG/ML VIAL 10 MG IV (17:44)
[2024-04-18 19:23] LABS: Magnesium 4.3 mg/dl (1.6-2.3)
--- NOTE | 2024-04-18 19:25 | PC.NURSE ---
Bilateral lungs sounds are clear, throughout.
[2024-04-18] MEDS: LABETALOL 100MG TABLET 400 MG PO (19:44)
[2024-04-18] MEDS: SERTRALINE 50MG TABLET 50 MG PO (21:20)
[2024-04-18] MEDS: PRENATAL MULTIVITAMIN W/IRON 1 EACH PO (21:20)
--- NOTE | 2024-04-18 21:21 | PC.NURSE ---
Lung sounds auscultated clear bilaterally and throughout.
--- NOTE | 2024-04-18 21:22 | PC.NURSE ---
All charting and care completed by Benedict Roach RN was under my direct supervision
--- NOTE | 2024-04-18 21:49 | PC.NURSE ---
Lung sounds auscultated clear bilaterally and throughout.
--- NOTE | 2024-04-18 22:21 | PC.NURSE ---
Clear lung sounds auscultated bilaterally and throughout.
--- NOTE | 2024-04-18 23:21 | PC.NURSE ---
Lung sounds auscultated clear bilaterally and throughout.
[2024-04-19] VITALS (16 sets, daily range): BP systolic 110–146; BP diastolic 56–77; PULSE 87–97; RESP 16–20; TEMP 36.8–36.9; O2SAT 95–100
--- NOTE | 2024-04-19 00:23 | PC.NURSE ---
Breath sounds auscultated clear bilaterally and throughout. Discussed with patient plans for pumping throughout night. Educated on need for frequent pump sessions to build and maintain supply. Patient requests to sleep at this time.
--- NOTE | 2024-04-19 01:23 | PC.NURSE ---
Patient lung sounds auscultated posteriorly. Remain clear throughout bilaterally.
--- NOTE | 2024-04-19 01:34 | PC.NURSE ---
Patient lung sounds auscultated posteriorly. Remain clear throughout bilaterally.
[2024-04-19] MEDS: MAGNESIUM SULFATE IN WATER 20 GM/500 ML IV.SOLN IV ×2 (01:43→12:23)
--- NOTE | 2024-04-19 02:23 | PC.NURSE ---
Lung sounds auscultated clear bilaterally and throughout.
[2024-04-19] MEDS: ACETAMINOPHEN 500MG TAB 1000 MG PO ×2 (02:32→09:26)
--- NOTE | 2024-04-19 03:23 | PC.NURSE ---
Patient awake and oriented x4. Heart sounds auscultated at regular rate. Lung sounds clear bilateral and throughout. Bowel sounds present in all 4 quadrants. Abdomen soft and nontender. Patient denies nausea. Scant amount lochia noted. Patient assisted with peripad change. Patient pumped 50 mL and milk was bagged and placed in refrigerator for patient. Patient denies any further needs, wishes to sleep at this time.
--- NOTE | 2024-04-19 04:23 | PC.NURSE ---
Lung sounds clear bilaterally throughout.
[2024-04-19] MEDS: LACTATED RINGERS 1000ML 1,000 ML 75 ML IV (05:16)
--- NOTE | 2024-04-19 05:24 | PC.NURSE ---
Lung sounds clear throughout bilaterally
--- NOTE | 2024-04-19 06:23 | PC.NURSE ---
Breath sounds auscultated clear bilaterally.
[2024-04-19 06:42] LABS: Basophils % 0.4 % (0.1-2.0); Eosinophils % 2.6 % (0.1-12.0); Hematocrit 37.3 % (37.0-47.0); Hemoglobin 12.2 g/dL (12.2-16.2); Lymphocytes % 26.3 % (10-50); Mean Corpuscular HGB Conc 32.8 g/dL (31.8-35.4); Mean Corpuscular Hemoglobin 30.1 pg (27.0-31.2); Mean Corpuscular Volume 91.7 fl (81-99); Mean Platelet Volume 8.3 fl (7.4-10.4); Monocytes % 4.4 % (1.7-9.3); Neutrophils % 66.4 % (37.0-80.0); Platelet Count 457 K/mm3 (142-424); Red Blood Count 4.07 M/mm3 (4.20-5.40); Red Cell Distribution Width 13.8 % (11.5-17.5); White Blood Count 12.6 K/mm3 (4.8-10.8)
[2024-04-19 06:43] LABS: Basophils # 0.1 K/mm3 (0-0.2); Eosinophils # 0.3 K/mm3 (0.0-0.4); Lymphocytes # 3.3 K/mm3 (0.7-4.5); Monocytes # 0.6 K/mm3 (0.1-1.0); Neutrophils # 8.4 K/mm3 (1.8-7.8)
[2024-04-19 06:45] LABS: Chloride 105 mmol/L (98-107); Potassium 3.5 mmoL/L (3.5-5.1); Sodium 135 mmol/L (136-145)
[2024-04-19 06:47] LABS: Alanine Aminotransferase 32 U/L (12-78); Aspartate Amino Transferase 37 U/L (14-36); Blood Urea Nitrogen 7 mg/dl (7-17); Creatinine Clearance Estimated 132 mL/min (50-200); Estimated Glomerular Filt Rate 138 ml/min (>60); GFR (African American) 167 ML/MIN (>60)
[2024-04-19 06:48] LABS: Albumin Level 3.7 g/dl (3.5-5.0); Albumin/Globulin Ratio 1.2 (1.1-1.8); Alkaline Phosphatase 126 U/L (38-126); Anion Gap 9.5 mEq/L (5-15); Bilirubin,Total 0.3 mg/dl (0.2-1.3); Calcium 7.4 mg/dl (8.4-10.2); Carbon Dioxide 24 mmol/L (22.0-30.0); Globulin 3.2 g/dL (1.3-3.2); Glucose 114 mg/dl (74-100); Total Protein,Serum 6.9 g/dl (6.3-8.2)
--- NOTE | 2024-04-19 07:24 | PC.NURSE ---
Bilateral breath sounds CTA in all lung joshi. No distress noted.
--- NOTE | 2024-04-19 07:30 | P.DS_ITS ---
General Discharge date: 04/19/24 HPI HPI HPI: Tahira Suazo is a 38-year-old who presented to the office for a nurse visit for blood pressure check. She was noted to have severe range blood pressures and sent immediately to labor and delivery. Her blood pressure was persistently severe range upon arrival. Patient denies any headaches or vision changes. Denies any right upper quadrant pain. At time of delivery and for her hospital stay her blood pressure was low at her home blood pressure medicines were discontinued. She does have a history of chronic hypertension. Hospital Course Hospital Course Hospital Course: Tahira is a 38 yo who was admitted for magnesium seizure prophylaxis. She had persistent severe range blood pressure and maxed out the IV labetalol protocol and two doses of hydralazine. Pt was restarted on labetalol 400mg TID and nifedipine 60mg once daily. This morning her BP is well controlled. She will complete her 24 hour course of magnesium and have repeat PIH labs this morning. Repeat PIH labs were within normal limits. Her blood pressure was well- controlled all day today. She will be discharged home with labetalol 400 mg twice daily and nifedipine 60 mg once daily. She will follow-up on Wednesday for a blood pressure check. Her calcium was noted to be low and she was given calcium carbonate for supplementation Exam Data for Last 24 hours Vital signs and Labs for Last 24 Hours: Temp Pulse Resp BP Pulse Ox O2 Del Method 98.4 F 87 18 146/74 H 96 Room Air 04/19/24 03:23 04/19/24 06:23 04/19/24 06:23 04/19/24 06:23 04/19/24 06:23 04/19/24 06:23 Laboratory Results - last 24 hr 04/18/24 15:20: WBC 12.3 H, RBC 3.83 L, Hgb 11.7 L, Hct 35.1 L, MCV 91.6, MCH 30.5, MCHC 33.3, RDW 13.7, Plt Count 448 H, MPV 8.5, Neut % (Auto) 61.6, Lymph % (Auto) 29.8, [place] % (Auto) 4.6, Eos % (Auto) 3.3, Baso % (Auto) 0.7, Neut # (Auto) 7.6, Lymph # (Auto) 3.7, [place] # (Auto) 0.6, Eos # (Auto) 0.4, Baso # (Auto) 0.1, PT 10.3, INR 0.95, APTT 28.2, Fibrinogen 395 H, Sodium 137, Potassium 3.9, Chloride 107, Carbon Dioxide 26, Anion Gap 7.9, BUN 10, Creatinine 0.70, Estimated Creat Clear 94, Estimated GFR 94, Est GFR ( Amer) 113, Glucose 89, Uric Acid 7.2 H, Calcium 9.3, Magnesium 1.7, AST 35, ALT 33, Urine Color Yellow, Urine Appearance Clear, Urine pH 6.0, Ur Specific [place] 1.025, Urine Protein Trace, Urine Glucose (UA) Negative, Urine Ketones Negative, Urine Blood 3+, Urine Nitrate Negative, Urine Bilirubin Negative, Urine Urobilinogen 0.2, Ur Leukocyte Esterase 2+ A, Urine RBC Occasional, Urine WBC 10-20, Ur Squamous Epith Cells 3-5, Urine Bacteria 1+, Urine Creatinine 125, Urine Total Protein 29.0 H 04/18/24 18:14: Magnesium 4.3 H D 04/19/24 06:14: WBC 12.6 H, RBC 4.07 L, Hgb 12.2, Hct 37.3, MCV 91.7, MCH 30.1, MCHC 32.8, RDW 13.8, Plt Count 457 H, MPV 8.3, Neut % (Auto) 66.4, Lymph % (Auto) 26.3, [place] % (Auto) 4.4, Eos % (Auto) 2.6, Baso % (Auto) 0.4, Neut # (Auto) 8.4 H, Lymph # (Auto) 3.3, [place] # (Auto) 0.6, Eos # (Auto) 0.3, Baso # (Auto) 0.1, Sodium 135 L, Potassium 3.5, Chloride 105, Carbon Dioxide 24, Anion Gap 9.5, BUN 7 D, Creatinine 0.50 L D, Estimated Creat Clear 132, Estimated GFR 138, Est GFR ( Amer) 167 D, Glucose 114 H D, Calcium 7.4 L, Total Bilirubin 0.3, AST 37 H, ALT 32, Alkaline Phosphatase 126, Total Protein 6.9, Albumin 3.7, Globulin 3.2, Albumin/Globulin Ratio 1.2 I & O for Last 24 hours: Intake & Output 04/16/24 04/17/24 04/18/24 04/19/24 23:59 23:59 23:59 23:59 Intake Total 1232 / 1232 862 / 862 Output Total 1268 / 1268 1440 / 1440 Balance -36 / -36 -578 / -578 Weight 248 lb Constitutional Constitutional: no acute distress *Routine HEENT Exam Head: Present normocephalic Eye: Present EOMI and PERRL ENT: Present mucous membranes moist *Routine Neck Exam Neck: Present supple; Absent lymphadenopathy *Routine Respiratory Exam Respiratory: Present CTA bilaterally *Routine Cardiovascular Exam Cardiovascular: Present RRR *Routine Abdominal Exam Abdominal: Present soft and normoactive bowel sounds; Absent tenderness *Routine Extremities Exam Extremities: Absent cyanosis, clubbing or edema Comments: +2/4 bilateral lower extremities reflexes *Routine Skin Exam Skin: Present warm; Absent rash *Routine Neurological Exam Neurological: Present alert and oriented X3 Results Data Completed and Pending Labs on day of discharge: Labs from last 24 hours 04/19/24 04/18/24 04/18/24 06:14 18:14 15:20 WBC 12.6 H 12.3 H RBC 4.07 L 3.83 L Hgb 12.2 11.7 L Hct 37.3 35.1 L MCV 91.7 91.6 MCH 30.1 30.5 MCHC 32.8 33.3 RDW 13.8 13.7 Plt Count 457 H 448 H MPV 8.3 8.5 Neut % (Auto) 66.4 61.6 Lymph % (Auto) 26.3 29.8 [place] % (Auto) 4.4 4.6 Eos % (Auto) 2.6 3.3 Baso % (Auto) 0.4 0.7 Neut # (Auto) 8.4 H 7.6 Lymph # (Auto) 3.3 3.7 [place] # (Auto) 0.6 0.6 Eos # (Auto) 0.3 0.4 Baso # (Auto) 0.1 0.1 PT 10.3 INR 0.95 APTT 28.2 Fibrinogen 395 H Sodium 135 L 137 Potassium 3.5 3.9 Chloride 105 107 Carbon Dioxide 24 26 Anion Gap 9.5 7.9 BUN 7 D 10 Creatinine 0.50 L D 0.70 Estimated Creat Clear 132 94 Estimated GFR 138 94 Est GFR ( Amer) 167 D 113 Glucose 114 H D 89 Uric Acid 7.2 H Calcium 7.4 L 9.3 Magnesium 4.3 H D 1.7 Total Bilirubin 0.3 AST 37 H 35 ALT 32 33 Alkaline Phosphatase 126 Total Protein 6.9 Albumin 3.7 Globulin 3.2 Albumin/Globulin Ratio 1.2 Urine Color Yellow Urine Appearance Clear Urine pH 6.0 Ur Specific [place] 1.025 Urine Protein Trace Urine Glucose (UA) Negative Urine Ketones Negative Urine Blood 3+ Urine Nitrate Negative Urine Bilirubin Negative Urine Urobilinogen 0.2 Ur Leukocyte Esterase 2+ A Urine RBC Occasional Urine WBC 10-20 Ur Squamous Epith Cells 3-5 Urine Bacteria 1+ Urine Creatinine 125 Urine Total Protein 29.0 H DS: Diagnosis Discharge Diagnosis (1) Chronic hypertension with superimposed preeclampsia: Status: Acute Code(s): O11.9 - Pre-existing hypertension with pre-eclampsia, unspecified trimester (2) History of pre-eclampsia: Status: Acute Code(s): Z87.59 - Personal history of other complications of , childbirth and the puerperium (3) Obesity (BMI 30-39.9): Status: Acute Code(s): E66.9 - Obesity, unspecified (4) Chronic hypertension affecting : Status: Acute Code(s): O10.919 - Unspecified pre-existing hypertension complicating , unspecified trimester (5) Anxiety: Status: Acute Code(s): F41.9 - Anxiety disorder, unspecified (6) A-fib: Status: Acute Code(s): I48.91 - Unspecified atrial fibrillation Qualifiers: Atrial fibrillation type: unspecified chronic Qualified Code(s): I48.20 - Chronic atrial fibrillation, unspecified (7) Depression: Status: Acute Code(s): F32.A - Depression, unspecified Meds Home Medications and Allergies Home Medications Medication Instructions Recorded Confirmed Type vitamins with calcium 1 tab PO DAILY 07/05/23 04/18/24 History no.72-iron 29 mg-folic acid 1 mg tablet sertraline 50 mg tablet 50 mg PO DAILY #90 tabs 10/11/23 04/18/24 Rx labetalol 200 mg tablet 400 mg (2 x 200 mg) PO BID #120 04/11/24 04/18/24 Rx tabs acetaminophen 500 mg tablet 500 mg PO Q6H PRN fever #30 tabs 04/14/24 04/18/24 Rx ibuprofen 800 mg tablet 800 mg PO Q8H PRN pain #60 tabs 04/14/24 04/18/24 Rx nifedipine 30 mg tablet,extended 60 mg (2 x 30 mg) PO DAILY #60 tabs 04/19/24 Rx release 24 hr New Prescriptions to Start Prescriptions: nifedipine Miesha Hernandez Allergies Allergy/AdvReac Type Severity Reaction Status Date / Time sulfamethoxazole Allergy Intermediate Hives Verified 04/18/24 13:38 [From Bactrim] trimethoprim [From Bactrim] Allergy Intermediate Hives Verified 04/18/24 13:38 Discharge Plan Disposition Patient Disposition: Home, Self-Care Follow up Plan Follow up with: Miesha Hernandez DO [Staff Physician] - Enter time for follow up Prescriptions/Medication Reconciliation: New nifedipine 30 mg Tablet Extended Release 24hr 60 mg PO DAILY Qty: 60 2RF Continued PNV,calcium 72-iron,carb-folic 29 mg iron- 1 mg tablet 1 tab PO DAILY sertraline 50 mg tablet 50 mg PO DAILY Qty: 90 1RF labetalol 200 mg tablet 400 mg PO BID Qty: 120 1RF ibuprofen 800 mg tablet 800 mg PO Q8H PRN (Reason: pain) Qty: 60 2RF acetaminophen 500 mg tablet 500 mg PO Q6H PRN (Reason: fever) Qty: 30 3RF Problem Reconciliation Problems Reviewed?: Yes Patient Discharge Instructions ACTIVITY: Continue current activity DIET: regular diet Additional Instructions: Blood pressure and preeclampsia instructions At discharge you will take: -Labetalol 400mg twice daily -Nifedipine 60mg once daily 1. Please take your blood pressure twice daily. 2. Please call if greater than 2 values are higher than: 150 systolic (the top number) or 100 diastolic (the bottom number). 3. Please go to the emergency room or labor and delivery triage if any value is higher than: 160 systolic (the top number) or 110 diastolic (the bottom number). 4. Please call if unrelenting headache (does not go away with rest or Tylenol or ibuprofen), changes in vision (spots, floaters, flashes of light), chest pain, shortness of breath, or right upper quadrant (liver) abdominal pain. Miesha Hernandez DO [facility] [phone] *Nothing in the Vagina for 6 weeks* *No strenuous activity* *No heavy lifting* *No tub baths until okay's by MD* Providers Primary Care Provider: Santi Melara Provider: Miesha Hernandez Attending Provider: Miesha Hernandez
--- NOTE | 2024-04-19 08:24 | PC.NURSE ---
Bilateral breath sounds CTA in all lung joshi. No distress noted.
[2024-04-19 08:42] LABS: Lactate Dehydrogenase 206 U/L (313-618)
--- NOTE | 2024-04-19 09:20 | PC.NURSE ---
Bilateral breath sounds CTA in all lung joshi. No distress noted. Patient has pumped once on my shift. Encouraged more frequent pumping.
[2024-04-19] MEDS: NIFEdipine XL 30MG TABLET 60 MG PO (09:24)
[2024-04-19] MEDS: LABETALOL 100MG TABLET 400 MG PO (09:24)
--- NOTE | 2024-04-19 10:30 | PC.NURSE ---
Bilateral breath sounds CTA in all lung joshi. No distress noted.
--- NOTE | 2024-04-19 11:24 | PC.NURSE ---
Bilateral breath sounds CTA in all lung joshi. No distress noted.
[2024-04-19] MEDS: CALCIUM CARBONATE 500MG CHEWTAB 1000 MG PO (12:23)
--- NOTE | 2024-04-19 12:32 | PC.NURSE ---
Bilateral breath sounds CTA in all lung joshi. No distress noted.
--- NOTE | 2024-04-19 13:29 | PC.NURSE ---
Bilateral breath sounds CTA in all lung joshi. No distress noted.
--- NOTE | 2024-04-19 14:24 | PC.NURSE ---
Bilateral breath sounds CTA in all lung joshi. No distress noted.
--- NOTE | 2024-04-19 15:30 | PC.NURSE ---
Magnesium infusion stopped at this time
--- NOTE | 2024-04-19 15:30 | PC.NURSE ---
Reassessment completed at this time. Patient reports headache is resolved at this time. Patient reports being tired and flush feeling. Lochia is scant this shift. Lungs remain cta, and bowel sounds active x4. No dizziness noted, no abdominal pain or blurred vision. plan is to d/c patient tonight. No current needs voiced to RN.
[2024-04-19 16:09] LABS: Magnesium 5.3 mg/dl (1.6-2.3)
--- NOTE | 2024-04-19 19:30 | PC.NURSE ---
Patient taken by staff to private vehicle via wheelchair. Breastmilk placed into bag with ice and given to patient.
== END 2024-04-19 19:30 | disposition home or self-care (01) ==
LOC: OB 14:35
PROVIDERS: Obstetrics & Gynecology; Admitting Provider Obstetrics & Gynecology; PCP Family Medicine; Visit Provider Obstetrics & Gynecology
DX: O11.3 Pre-existing hypertension with pre-eclampsia, third trimester (principal); Z3A.38 38 weeks gestation of pregnancy; O99.343 Other mental disorders complicating pregnancy, third trimester; F41.9 Anxiety disorder, unspecified; O99.213 Obesity complicating pregnancy, third trimester
CPT/HCPCS: 36415; 80048; 80053; 81001; 82570; 83615; 83735; 84156; 84450; 84460; 84550; 85025; 85384; 85610; 85730; 87086; 87088; 87186; 94761; G0283; G0378; J0696; J7120

== ENCOUNTER → 2024-05-18 10:09 | Outpatient (CLI) | payer OTHER, SELFPAY ==
--- NOTE | 2024-05-18 10:30 | PC.NURSE ---
Patient is here today for a consult to increase her milk supply. She reports that she pumps about 2 ounces total every hours. Patient reports is not satisfied after feeding from breast. Patient states she is using a 24mm. Patient was sized for flanges at this visit- 21mm size. Patient was counseled on ways to increase milk supply. Paper given to patient with ways to increase supply. Pt is going to power pump every day for a week, increase water intake. Also talked with patient about medications she is on and how this can negatively affect milk supply. Will follow up with patient next week.
== END ==
LOC: OBOUT 10:10
PROVIDERS: PCP Family Medicine; Visit Provider Obstetrics & Gynecology
DX: Z39.1 Encounter for care and examination of lactating mother (principal)

== ENCOUNTER 2024-05-30 10:07 | Outpatient (CLI) | payer OTHER, SELFPAY ==
[2024-05-30 10:34] LABS: Basophils # 0.1 K/mm3 (0-0.2); Basophils % 0.7 % (0.1-2.0); Eosinophils # 1.2 K/mm3 (0.0-0.4); Eosinophils % 9.5 % (0.1-12.0); Hematocrit 40.8 % (37.0-47.0); Hemoglobin 13.1 g/dL (12.2-16.2); Lymphocytes # 3.9 K/mm3 (0.7-4.5); Mean Corpuscular HGB Conc 32.1 g/dL (31.8-35.4); Mean Corpuscular Hemoglobin 29.2 pg (27.0-31.2); Mean Corpuscular Volume 91.1 fl (81-99); Mean Platelet Volume 8.2 fl (7.4-10.4); Monocytes # 0.6 K/mm3 (0.1-1.0); Monocytes % 4.4 % (1.7-9.3); Neutrophils # 6.8 K/mm3 (1.8-7.8); Neutrophils % 54.3 % (37.0-80.0); Platelet Count 421 K/mm3 (142-424); Red Blood Count 4.47 M/mm3 (4.20-5.40); Red Cell Distribution Width 14.1 % (11.5-17.5); White Blood Count 12.4 K/mm3 (4.8-10.8)
[2024-05-30 11:36] LABS: Alanine Aminotransferase 29 U/L (12-78); Albumin Level 4.4 g/dl (3.5-5.0); Albumin/Globulin Ratio 1.4 (1.1-1.8); Alkaline Phosphatase 96 U/L (38-126); Anion Gap 13.4 mEq/L (5-15); Aspartate Amino Transferase 28 U/L (14-36); Bilirubin,Total 0.5 mg/dl (0.2-1.3); Blood Urea Nitrogen 13 mg/dl (7-17); Calcium 9.8 mg/dl (8.4-10.2); Carbon Dioxide 24 mmol/L (22.0-30.0); Chloride 107 mmol/L (98-107); Estimated Glomerular Filt Rate 94 ml/min (>60); GFR (African American) 113 ML/MIN (>60); Globulin 3.1 g/dL (1.3-3.2); Glucose 99 mg/dl (74-100); Potassium 4.4 mmoL/L (3.5-5.1); Sodium 140 mmol/L (136-145); Total Protein,Serum 7.5 g/dl (6.3-8.2)
[2024-05-30 11:57] LABS: HCG,Quantitative < 2 mIU/ml (0-5.42)
== END 2024-05-30 23:59 | disposition home or self-care (01) ==
LOC: LAB 10:08
PROVIDERS: PCP Family Medicine; Visit Provider Obstetrics & Gynecology
DX: Z30.2 Encounter for sterilization (principal)
CPT/HCPCS: 36415; 80053; 84702; 85025

== ENCOUNTER 2024-06-01 08:44 | Day surgery (SDC) | payer OTHER, SELFPAY ==
[2024-05-31 13:11] VITALS: BMI 37.7
[2024-06-01] VITALS (9 sets, daily range): BP systolic 137–160; BP diastolic 61–92; PULSE 63–80; RESP 14–18; TEMP 36.2–36.4; O2SAT 88–97
--- NOTE | 2024-06-01 09:20 | EXP.ANES.CKL ---
[facility] Disclaimer: The information contained in this section may have been updated after the patient was seen, as this information can be updated by other users. Medical History Encounter for pre-operative cardiovascular clearance History of gestational diabetes Chronic hypertension affecting Abnormal electrocardiogram [ECG] [EKG] Preeclampsia Anxiety Depression Vaginal delivery A-fib Surgical History Hx of cholecystectomy Family History Grandfather Cancer Father Diabetes Hypertension Family/Other Alcoholism Social History Smoking Status: Never smoker second hand exposure: No alcohol intake: never substance use type: denies use current occupational status: unemployed Travel in the last 8 weeks: None adopted: No caregiver/support person: No foster care: No household members: spouse and children housing: house lives independently: Yes marital status: number of children: 1 service: No mcfp: No current occupational exposures/hazards: No pets and animals: Yes leisure activities: exercise, music, reading and other Hx Recent Travel: Yes sexually active: Yes well-balanced diet: about half the time caffeine: Yes high-fat food intake: 2 times daily daily servings fruits/ve-4 daily servings of milk/calcium: 2-4 eating out: 1-3 times/week reads food labels: seldom or never during the past year weight has: decreased > 10 lbs physical activity: walking and other frequency: 3-4 times per week duration: 15-30 minutes/day roxy/taoist: None special roxy needs: No agree to transfusion: Yes helmet use: Yes drive intox or ride w/ intox 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 salpingectomy Consent for Planned Operative Procedure(s) Verified: Yes Verified Documents: Surgical Consent, History and Physical and Cardiac Clearance NPO Status Verified Time NPO: 00:00 Chart Verification Results Verified: CBC and BMP Additional verifications Anesthesia Reactions: No Hx Blood Transfusions: No Blood Transfusion Reaction: No Airway Assessment Mallampati Score:: Class III C-Spine Mobility Assessed: Yes TMJ Mobility Assessed: Yes Dentition: Poor Dentition Neurological Assessment Level of Consciousness: Awake Hx Seizures: No Numbness or tingling in extremities: No Anesthesia Plan Anesthesia Risk discussed: Yes Anesthesia Plan: Verified ASA Class: II Anesthesia Type: General
[2024-06-01] MEDS: LACTATED RINGERS 1000ML 1,000 ML 25 ML IV (09:22)
[2024-06-01] MEDS: LIDOCAINE 1% W/EPI 1:100,000 20ML VIAL 40 ML (12:33)
--- NOTE | 2024-06-01 13:12 | P.OP_ITS ---
Date of procedure: 06/01/24 Pre-op Diagnosis:: 1. Desires sterilization Post-op Diagnosis:: 1. Desires sterilization Procedure performed:: Laparoscopic bilateral salpingectomy Surgeon:: Miesha Hernandez DO Proof Coins Inspector(s):: Torri Tariq [employer]FF[employer] SUPERVISOR:: Jero Arce Anesthesia: GETA Estimated blood loss (mL): 10 Operative findings:: 1. Bimanual examination revealed an anteverted 8-week size uterus with smooth contour without any adnexal masses. 2. Laparoscopic exam revealed normal-appearing uterus, ovaries, fallopian tubes and liver. Operative note:: Tahira Suazo is a 38-year-old who desires permanent sterilization. Risk and benefits were reviewed at length. We discussed LARCs and she desired to proceed with a permanent procedure. The patient was taken to the operating room where general anesthesia was obtained and noted to be adequate. SCDs were placed for thromboembolism prophylaxis and found to be working. The patient was placed in the dorsal lithotomy position using yellowfin stirrups. Timeout verified the correct patient and procedure. The patient was prepped and draped in a usual sterile fashion. A catheter was used to drain her bladder. An acorn uterine manipulator was placed and my top gloves were removed. 10mL of Lidocaine with epinepherine was injected infraumbilically and a scalpel was used to make a 5 mm infraumbilical incision with the assistance from a hemostat. The skin was tented and Optiview blunt trocar was introduced into the abdomen in the usual fashion. CO2 gas was connected with an initial pressure of 6 mmHg noted. Pneumoperitoneum was created to a pressure of 15 mmHg. The laparoscopic camera was inserted and a quick survey of the abdomen revealed grossly normal anatomy. The uterus appeared to be bulky and anteverted with a normal size shape and contour. The patient was placed in Trendelenburg. 10mLs of local anesthetic was injected and a 5mm incision was then made in the right lower quadrant with careful attention to avoid the rectus muscles and vasculature and under direct laparoscopic visualization a blunt trocar was introduced into the abdominal cavity. This process was repeated on the left side with an 8 mm trocar. The fallopian tubes were identified on the cornu of the uterus and followed out to the ovaries which revealed grossly appearing anatomy. A grasper was used to elevate the left fallopian tube. The Ligasure was used to grasp the fimbriated end of the fallopian tube, ensuring complete removal of the fimbriae, it was clamped, coagulated and transected. This process was repeated serially working towards the uterus to allow complete removal of the fallopian tube. Careful attention was given to transected the Mesosalpinx proximal to the fallopian tube. The fallopian tube was removed from the abdominal cavity and passed off the operative field to be sent to pathology. Hemostasis was noted. Attention was then turned to the right fallopian tube and the process was repeated. Hemostasis was noted and the tube was removed along with the trocar and handed off the operative field to be sent to pathology. Pneumoperitoneum reduced, and all ports removed. The 3 abdominal incisions were closed with a single simple interrupted suture using 4-0 Monocryl. Dermabond was applied to each skin incision. The [place] uterine manipulator was removed. All counts were correct x2, per nursing. The patient was extubated, stable, and transferred to the PACU. She will be discharged after meeting all DC criteria to include voiding, ambulating and tolerating PO independently. Condition: stable Disposition: same day Specimens:: Bilateral fallopian tubes Complications:: None
--- NOTE | 2024-06-01 13:24 | EXP.ANES.I ---
[facility] Anesthesia Record Part I Anesthesia Record I Intake, IV Amount: 900 Hydration: Adequate Estimated blood loss (mL): 2 Urine output (mL): 0 Blood Products used (#): none Blood Pressure: 137/75 SaO2: 95 Pulse Rate: 63 Airway Patency: Patent Respiratory Rate: 16 Temperature: 97.5 F Patient is:: Drowsy and Stable Stable to PACU at:: 13:12
--- NOTE | 2024-06-02 09:19 | P.PNANES_ITS ---
[facility] Anesthesia Record Part II Anesthesia Record Part II Discharge Time: 13:42 Destination: Surgical Day Care (OP Surgery) PACU nurse assessment reviewed?: Yes Patient Condition:: Good Anesthesia Complications:: None Swallowing reflex intact?: Yes Airway Patency: Patent Cyanosis?: No Blood Pressure: 155/76 SaO2: 96 Respiratory Rate: 16 Pulse Rate: 76 Temperature: 97.5 F Mental Status: Alert & Oriented Pain level:: 0 Nausea and/or vomitting:: None Intake, IV Amount: 0 Hydration: Adequate
[2024-06-02 09:20] VITALS: BP 155/76; PULSE 76; RESP 16; TEMP 36.4; O2SAT 96
== END 2024-06-01 14:26 | disposition home or self-care (01) ==
PROVIDERS: PCP Family Medicine; Visit Provider Obstetrics & Gynecology
PROC: (CPT 58661; principal; 2024-06-01 10:45)
DX: Z30.2 Encounter for sterilization (principal)
CPT/HCPCS: 58661; 96374; J3490; J1100; J2250; J2405; J3010; J7120

== ENCOUNTER → 2024-06-13 09:46 | Outpatient (CLI) | payer OTHER, SELFPAY ==
--- NOTE | 2024-06-13 10:04 | PC.NURSE ---
Patient presents to unit for consult- reports low milk supply. Tahira has tried all of my recommendations and I am going to d/c her from my care and recommend her to f/u with DR Hernandez to prescribe Reglan. Patient was agreeable to this.
== END ==
LOC: OBOUT 09:47
PROVIDERS: PCP Family Medicine; Visit Provider Obstetrics & Gynecology
DX: Z39.1 Encounter for care and examination of lactating mother (principal)